=== PATIENT | female | born 1945 | race Caucasian/White ===

== ENCOUNTER → 2017-08-06 | Outpatient (REF) | payer MEDICARE, OTHER | LOC: M SMT 17:05 | PROVIDERS: ATTEND Nurse Practitioner Family | DX: R10.9 Unspecified abdominal pain (principal); Z87.442 Personal history of urinary calculi | CPT/HCPCS: 81001; 87086; G0463 ==

== ENCOUNTER → 2017-08-08 | Outpatient (CLI) | payer MEDICARE, OTHER ==
[2017-08-08 18:16] LABS: MEAN CORPUSCULAR HEMOGLOBIN 31.2 pg (27.0-33.0); MEAN CORPUSCULAR HGB CONC 33.3 g/dl (32.0-36.5); MEAN CORPUSCULAR VOLUME 93.8 fl (80.0-96.0); PLATELET COUNT, AUTOMATED 210 10^3/uL (150-450); RED CELL DISTRIBUTION WIDTH 12.8 % (11.5-14.5); WHITE BLOOD COUNT 6.1 10^3/uL (4.0-10.0)
[2017-08-08 18:23] LABS: ANION GAP 6 MEQ/L (8-16); BLOOD UREA NITROGEN 21 MG/DL (7-18); CALCIUM LEVEL 10.1 MG/DL (8.8-10.2); CARBON DIOXIDE LEVEL 29 MEQ/L (21-32); CHLORIDE LEVEL 107 MEQ/L (98-107); CREATININE FOR GFR 0.96 MG/DL (0.55-1.02); GLOMERULAR FILTRATION RATE > 60.0 (>39); GLUCOSE, FASTING 103 MG/DL (83-110); SODIUM LEVEL 142 MEQ/L (136-145)
== END ==
LOC: M SMT 10:50
PROVIDERS: ATTEND Nurse Practitioner Family
DX: R10.31 Right lower quadrant pain (principal); Z87.442 Personal history of urinary calculi

== ENCOUNTER → 2017-08-15 | Outpatient (CLI) | payer MEDICARE, OTHER ==
--- NOTE | 2017-08-15 08:48 | REP ---
CT ABDOMEN AND PELVIS WITHOUT CONTRAST: 08/15/2017. Clinical history: Right flank pain. History of kidney stones. Comparison: 08/15/2017. Findings: CT abdomen: Renal stone protocol was utilized. The lung bases show no acute finding. Heart is not enlarged. There is no pericardial thickening or effusion. No hiatal hernia. Liver, spleen, adrenal glands and pancreas are unremarkable. Gallbladder is partially contracted. There is some retained food in the stomach not abnormally dilated. Stool and gas in the abdominal portion of colon without signs of colitis or diverticulitis. There is some left colonic diverticulosis. Small bowel loops grossly unremarkable. The aorta has calcifications without aneurysm. There is no periaortic or retroperitoneal pathologic sized lymphadenopathy. The left kidney shows a 4 mm stone in the upper pole pyramid or sheri and a 3 mm stone in the interpolar region laterally. There is no hydronephrosis. No hydroureter or ureteral stone. No cysts, solid mass or perinephric fluid. The left kidney showed no stone, mass or cyst. I see no hydroureter or ureteral stone. Bone windows show lumbar and lower thoracic spine with some minor degenerative changes but no compression deformity. There is a few millimeters of anterolisthesis of L4 on 5 due to facet arthritis. Visualized ribs are grossly intact. CT pelvis: The bony hips and pelvis show some degenerative changes without destructive lesion or fractures. The distal ureters are not dilated and show no stone. Bladder is nearly empty but without stone, mass or wall thickening. There is no periureteral edema. Uterus absent and the vaginal cuff intact. No adnexal mass. No pelvic free fluid or pelvic lymphadenopathy. The distal left colon and sigmoid show a few scattered diverticula. There are anastomotic sutures at the rectosigmoid junction from prior colon resection for diverticulitis. No ventral or inguinal hernia nor pathologic inguinal adenopathy. Impression: 1. A few scattered diverticula in the colon without diverticulitis or colitis. Prior colon resection from diverticulitis seen at the rectosigmoid junction intact. 2. There are a couple of small stones in 3-4 mm range, interpolar and upper pole regions of the left kidney but no hydronephrosis on that left side. No hydroureter or ureteral stone on either side and the right kidney without stones. There is no inflammatory change about the kidney or ureter to suggest a recent stone passage. The bladder without stone or other abnormality. 3. No other significant finding. Signed by Floyd Hanna MD 08/15/2017 05:28 P
== END ==
LOC: M RAD 07:39
PROVIDERS: ATTEND Nurse Practitioner Family
DX: N20.0 Calculus of kidney (principal)

== ENCOUNTER → 2018-02-06 | Outpatient (CLI) | payer MEDICARE, OTHER | LOC: M ADAMS 13:55 | DX: J20.9 Acute bronchitis, unspecified (principal) | CPT/HCPCS: 85025 ==

== ENCOUNTER → 2018-02-06 | Outpatient (REF) | payer MEDICARE, OTHER ==
[2018-02-06 19:45] LABS: BASO # 0.1 10^3/uL (0.0-0.2); BASO % 0.5 % (0.0-1.0); EOS # 0.4 10^3/uL (0.0-0.50); EOS % 2.6 % (0.0-3.0); HEMATOCRIT 44.4 % (36.0-47.0); HEMOGLOBIN 14.7 g/dl (12.0-15.5); IMMATURE GRANULOCYTE % 0.5 % (0-3.0); LYMPH # 2.2 10^3/uL (1.5-4.5); LYMPH % 16.3 % (24.0-44.0); MEAN CORPUSCULAR HEMOGLOBIN 30.6 pg (27.0-33.0); MEAN CORPUSCULAR HGB CONC 33.1 g/dl (32.0-36.5); MEAN CORPUSCULAR VOLUME 92.5 fl (80.0-96.0); MONO # 1.2 10^3/uL (0.0-0.8); MONO % 8.7 % (0.0-5.0); NEUTROPHILS # 9.5 10^3/uL (1.8-7.7); NEUTROPHILS % 71.4 % (36.0-66.0); PLATELET COUNT, AUTOMATED 261 10^3/uL (150-450); RED CELL DISTRIBUTION WIDTH 12.5 % (11.5-14.5); WHITE BLOOD COUNT 13.3 10^3/uL (4.0-10.0)
== END ==
LOC: M LABDRWAD 19:26
DX: J20.9 Acute bronchitis, unspecified (principal)

== ENCOUNTER → 2018-04-21 | Outpatient (CLI) | payer MEDICARE, OTHER | LOC: M WHC 12:07 | DX: M85.851 Other specified disorders of bone density and structure, right thigh (principal); M85.852 Other specified disorders of bone density and structure, left thigh; M85.88 Other specified disorders of bone density and structure, other site | CPT/HCPCS: 77080 ==

== ENCOUNTER → 2018-06-01 | Outpatient (REF) | payer MEDICARE, OTHER ==
[2018-06-01 22:42] LABS: APPEARANCE, URINE HAZY (CLEAR); BACTERIA, URINE AUTO 1+ (NEGATIVE); BILIRUBIN, URINE AUTO NEGATIVE (NEGATIVE); BLOOD, URINE BLOOD 1+ (NEGATIVE); COLOR, URINE YELLOW (YELLOW); GLUCOSE, URINE (UA) AUTO NEGATIVE (NEGATIVE); KETONE, URINE AUTO NEGATIVE (NEGATIVE); LEUKOCYTE ESTERASE, URINE AUTO NEGATIVE (NEGATIVE); MUCUS, URINE SMALL (NEGATIVE); NITRITE, URINE AUTO NEGATIVE (NEGATIVE); PROTEIN, URINE AUTO NEGATIVE (NEGATIVE); RBC, URINE AUTO 14 /HPF (0-3); SPECIFIC GRAVITY URINE AUTO 1.015 (1.002-1.035); SQUAMOUS EPITHELIAL CELL UR AU 1 /HPF (0-6); UROBILINOGEN, URINE AUTO 0.2 mg/dL (0.0-2.0); WBC, URINE AUTO 1 /HPF (0-3)
== END ==
LOC: M LAB REF 22:08
DX: N39.0 Urinary tract infection, site not specified (principal)
CPT/HCPCS: 81001

== ENCOUNTER → 2018-06-11 | Outpatient (CLI) | payer MEDICARE, OTHER ==
[2018-06-11 13:50] LABS: HEMATOCRIT 43.6 % (36.0-47.0); HEMOGLOBIN 14.4 g/dl (12.0-15.5); MEAN CORPUSCULAR HEMOGLOBIN 30.1 pg (27.0-33.0); PLATELET COUNT, AUTOMATED 230 10^3/uL (150-450); RED BLOOD COUNT 4.79 10^6/uL (4.00-5.40); RED CELL DISTRIBUTION WIDTH 12.7 % (11.5-14.5); WHITE BLOOD COUNT 5.9 10^3/uL (4.0-10.0)
[2018-06-11 14:03] LABS: INR 0.97; PARTIAL THROMBOPLASTIN TIME 26.7 SECONDS (25.4-37.6)
[2018-06-11 14:18] LABS: APPEARANCE, URINE MANUAL CLEAR (CLEAR)
[2018-06-11 14:19] LABS: COLOR, URINE MANUAL YELLOW (YELLOW); SPECIFIC GRAVITY,URINE MANUAL 1.015 (1.002-1.035)
[2018-06-11 14:20] LABS: BILIRUBIN, URINE MANUAL NEGATIVE (NEGATIVE); BLOOD URINE MANUAL TRACE (NEGATIVE); GLUCOSE, URINE (UA) MANUAL TRACE(50 MG/DL) mg/dL (NEGATIVE); KETONE, URINE MANUAL NEGATIVE (NEGATIVE); LEUKOCYTE ESTERASE, URINE MAN NEGATIVE (NEGATIVE); NITRITE, URINE MANUAL NEGATIVE (NEGATIVE); PROTEIN, URINE MANUAL NEGATIVE (NEGATIVE); UROBILINOGEN, URINE MANUAL NORMAL (NORMAL)
[2018-06-11 14:21] LABS: MICROSCOPIC INDICATED? MAN YES (NO)
[2018-06-11 14:24] LABS: BACTERIA, URINE NONE SEEN; HYALINE CAST, URINE NONE SEEN /lpf (0-1); MICROSCOPIC EXAM PERFORMED; SQUAMOUS EPITHELIAL CELL URINE SMALL AMOUNT /hpf (SMALL AMT); WBC, URINE 0-1 /hpf (0-3)
[2018-06-11 14:40] LABS: ANION GAP 8 MEQ/L (8-16); BLOOD UREA NITROGEN 18 MG/DL (7-18); CALCIUM LEVEL 10.1 MG/DL (8.8-10.2); CARBON DIOXIDE LEVEL 27 MEQ/L (21-32); CHLORIDE LEVEL 107 MEQ/L (98-107); CREATININE FOR GFR 0.99 MG/DL (0.55-1.30); GLOMERULAR FILTRATION RATE 58.9 (>39); GLUCOSE, FASTING 83 MG/DL (70-100); POTASSIUM SERUM 3.8 MEQ/L (3.5-5.1); SODIUM LEVEL 142 MEQ/L (136-145)
== END ==
LOC: M LAB 13:04
DX: Z01.818 Encounter for other preprocedural examination (principal); N20.0 Calculus of kidney
CPT/HCPCS: 93005

== ENCOUNTER 2018-06-18 06:16 | Day surgery (SDC) | payer MEDICARE, OTHER ==
[2018-06-18] MEDS ORDERED: LR 1,000 ML IV (07:00)
[2018-06-18] MEDS ORDERED: PROPOFOL 200 MG/20 ML VIAL As Ordered (07:45)
[2018-06-18] MEDS ORDERED: MIDAZOLAM INJ 2 MG/2 ML VIAL (J2250) As Ordered (07:45)
[2018-06-18] MEDS ORDERED: ONDANSETRON 4MG/2ML VIAL (J2405) As Ordered (07:45)
[2018-06-18] MEDS ORDERED: LIDOCAINE 2% INJ 100 MG/5 ML SDV (FOR ANES.) As Ordered (07:45)
[2018-06-18] MEDS ORDERED: fentaNYL 100 MCG/2 ML INJECTION (J3010) As Ordered (07:45)
== END 2018-06-18 08:50 | disposition home or self-care (01) ==
LOC: M SDC 06:16
DX: N20.0 Calculus of kidney (principal)
CPT/HCPCS: 50590

== ENCOUNTER → 2018-07-09 | Outpatient (REF) | payer MEDICARE, OTHER | LOC: M SMT 13:54 | DX: N20.0 Calculus of kidney (principal) | CPT/HCPCS: 82360 ==

== ENCOUNTER → 2018-07-09 | Outpatient (CLI) | payer MEDICARE, OTHER | LOC: M SMT 09:18 | DX: N20.0 Calculus of kidney (principal) | CPT/HCPCS: 74018 ==

== ENCOUNTER → 2018-07-09 | Outpatient (REF) | payer MEDICARE, OTHER ==
[2018-07-09 14:28] LABS: APPEARANCE, URINE HAZY (CLEAR); BACTERIA, URINE AUTO 1+ (NEGATIVE); BILIRUBIN, URINE AUTO NEGATIVE (NEGATIVE); BLOOD, URINE BLOOD NEGATIVE (NEGATIVE); CALCIUM OXALATE CRYSTALS LARGE; COLOR, URINE YELLOW (YELLOW); GLUCOSE, URINE (UA) AUTO NEGATIVE (NEGATIVE); KETONE, URINE AUTO NEGATIVE (NEGATIVE); LEUKOCYTE ESTERASE, URINE AUTO NEGATIVE (NEGATIVE); MUCUS, URINE SMALL (NEGATIVE); NITRITE, URINE AUTO NEGATIVE (NEGATIVE); PROTEIN, URINE AUTO NEGATIVE (NEGATIVE); RBC, URINE AUTO 14 /HPF (0-3); SPECIFIC GRAVITY URINE AUTO 1.018 (1.002-1.035); SQUAMOUS EPITHELIAL CELL UR AU 0 /HPF (0-6); UROBILINOGEN, URINE AUTO 0.2 mg/dL (0.0-2.0); WBC, URINE AUTO 9 /HPF (0-3)
== END ==
LOC: M SMT 14:05
DX: N20.0 Calculus of kidney (principal)
CPT/HCPCS: 81001

== ENCOUNTER → 2018-07-28 | Outpatient (CLI) | payer MEDICARE, OTHER | LOC: M ADAMS 16:15 | DX: J20.9 Acute bronchitis, unspecified (principal) | CPT/HCPCS: 85025 ==

== ENCOUNTER → 2018-07-28 | Outpatient (REF) | payer MEDICARE, OTHER ==
[2018-07-28 19:47] LABS: BASO # 0.1 10^3/uL (0.0-0.2); BASO % 0.4 % (0.0-1.0); EOS # 0.1 10^3/uL (0.0-0.50); EOS % 0.2 % (0.0-3.0); HEMATOCRIT 41.9 % (36.0-47.0); HEMOGLOBIN 13.7 g/dl (12.0-15.5); IMMATURE GRANULOCYTE % 0.6 % (0-3.0); LYMPH # 2.3 10^3/uL (1.5-4.5); LYMPH % 9.3 % (24.0-44.0); MEAN CORPUSCULAR HEMOGLOBIN 30.4 pg (27.0-33.0); MEAN CORPUSCULAR HGB CONC 32.7 g/dl (32.0-36.5); MEAN CORPUSCULAR VOLUME 93.1 fl (80.0-96.0); MONO # 1.5 10^3/uL (0.0-0.8); MONO % 5.8 % (0.0-5.0); NEUTROPHILS # 20.9 10^3/uL (1.8-7.7); NEUTROPHILS % 83.7 % (36.0-66.0); PLATELET COUNT, AUTOMATED 328 10^3/uL (150-450); RED CELL DISTRIBUTION WIDTH 12.7 % (11.5-14.5)
== END ==
LOC: M LABDRWAD 19:28
DX: J20.9 Acute bronchitis, unspecified (principal)

== ENCOUNTER → 2018-08-01 | Outpatient (CLI) | payer MEDICARE, OTHER ==
[2018-08-01 17:52] LABS: BASO # 0.1 10^3/uL (0.0-0.2); BASO % 0.7 % (0.0-1.0); EOS # 0.4 10^3/uL (0.0-0.50); EOS % 3.1 % (0.0-3.0); HEMATOCRIT 38.7 % (36.0-47.0); HEMOGLOBIN 12.7 g/dl (12.0-15.5); IMMATURE GRANULOCYTE % 0.2 % (0-3.0); LYMPH # 1.8 10^3/uL (1.5-4.5); LYMPH % 14.5 % (24.0-44.0); MEAN CORPUSCULAR HGB CONC 32.8 g/dl (32.0-36.5); MEAN CORPUSCULAR VOLUME 91.5 fl (80.0-96.0); MONO # 0.9 10^3/uL (0.0-0.8); MONO % 7.2 % (0.0-5.0); NEUTROPHILS # 9.4 10^3/uL (1.8-7.7); NEUTROPHILS % 74.3 % (36.0-66.0); PLATELET COUNT, AUTOMATED 313 10^3/uL (150-450); RED BLOOD COUNT 4.23 10^6/uL (4.00-5.40); RED CELL DISTRIBUTION WIDTH 12.9 % (11.5-14.5); WHITE BLOOD COUNT 12.7 10^3/uL (4.0-10.0)
== END ==
LOC: M LABDRWAD 13:49
DX: J20.9 Acute bronchitis, unspecified (principal)
CPT/HCPCS: 85025

== ENCOUNTER → 2019-01-11 | Outpatient (CLI) | payer MEDICARE, OTHER ==
[~2019-01-11] MED LIST: ESTR3TA PO; MELO15TA28 PO; PROBCAP14 PO; VITA100066 PO; VITA500C24 PO
--- NOTE | 2019-01-11 12:33 | REP ---
Supine abdomen single AP view for renal calculi: Comparisons are the supine abdomen of 07/09/[address] of the abdomen and pelvis dated 06/04/2018. Multiple bowel loops superimpose the renal areas bilaterally. Three small densities superimposed over the left kidney, possibly representing renal calculi versus bowel lumen content artifact. No definite calcifications are identified over the right kidney. There is a surgical staple line in the pelvis, unchanged. The bowel gas pattern is normal. Skeletal structures are unremarkable. Impression: Questionable left renal calculi. The right kidney is obscured by bowel gas. Electronically Signed by Venancio Amaya MD 01/11/2019 12:25 P
== END ==
LOC: M SMT 09:53
PROVIDERS: ATTEND Nurse Practitioner Family
DX: N20.0 Calculus of kidney (principal)
CPT/HCPCS: 74018; G0463

== ENCOUNTER → 2019-02-02 | Outpatient (CLI) | payer MEDICARE, OTHER ==
[~2019-02-02] MED LIST changes: +OXYC1TAB23 PO; +PHEN15CA PO; +TAMS1CAP17 PO
--- NOTE | 2019-02-03 06:25 | REP ---
Clinical: Kidney stone. Technique: Axial noncontrast images from the lung bases to the pubic symphysis with coronal and sagittal re-formations. Comparison: 06/04/2018. Findings: Evaluation of the urinary tract system demonstrates a by mm nonobstructing right renal calculus and multiple nonobstructing left renal calculi between 2 mm and 5 mm. While there is no evidence for perinephric stranding or hydroureteronephrosis, and 8 mm calculus is identified in the right sudheer pelvis (images [id number]) which represents a new finding as compared to prior examination and may represent nonobstructing distal right ureteral stone. Liver, spleen, pancreas, gallbladder, and bilateral adrenal glands are normal for noncontrast evaluation. The enteric system is without obstruction or acute inflammatory process. Colonic and sigmoid diverticula noted without acute diverticulitis. Evidence for prior resection/anastomoses involving the rectosigmoid junction. No ascites. No adenopathy. Pelvis demonstrates normal bladder and evidence for prior hysterectomy. Musculoskeletal structures demonstrate degenerative changes without focal osseous abnormality. Lung bases are clear. Impression: Bilateral nonobstructing intrarenal calculi as detailed above with possible nonobstructing 8 mm distal right ureteral stone. Electronically Signed by Keith Alva MD 02/03/2019 06:16 A
== END ==
LOC: M RAD 08:58
PROVIDERS: ATTEND Nurse Practitioner Family
DX: N20.0 Calculus of kidney (principal)

== ENCOUNTER 2019-02-17 11:41 | Day surgery (SDC) | payer MEDICARE, OTHER ==
[~2019-02-17] VITALS: Ht 165.1 cm; Wt 79.8 kg
[~2019-02-17 11:41] MED LIST changes: -OXYC1TAB23 PO; -PHEN15CA PO; -TAMS1CAP17 PO
[2019-02-17] MEDS ORDERED: OXYC1TAB23 PO (11:57)
[2019-02-17] MEDS ORDERED: TAMS1CAP17 PO (11:57)
[2019-02-17] MEDS ORDERED: NS 1,000 ML IV SCH (12:54)
[2019-02-17] MEDS ORDERED: ONDANSETRON 4MG/2ML VIAL (J2405) IV ONE (13:00)
[2019-02-17] MEDS ORDERED: KETOROLAC 30 MG/ML VIAL (J1885) IV ONE (13:00)
[2019-02-17 13:59] LABS: BASO % 0.2 % (0.0-1.0); HEMATOCRIT 46.8 % (36.0-47.0); HEMOGLOBIN 15.9 g/dl (12.0-15.5); LYMPH # 0.7 10^3/uL (1.5-4.5); LYMPH % 6.3 % (24.0-44.0); MEAN CORPUSCULAR HEMOGLOBIN 30.8 pg (27.0-33.0); MEAN CORPUSCULAR VOLUME 90.7 fl (80.0-96.0); MONO # 0.6 10^3/uL (0.0-0.8); MONO % 4.8 % (0.0-5.0); NEUTROPHILS # 10.4 10^3/uL (1.8-7.7); NEUTROPHILS % 88.2 % (36.0-66.0); PLATELET COUNT, AUTOMATED 241 10^3/uL (150-450); RED BLOOD COUNT 5.16 10^6/uL (4.00-5.40); WHITE BLOOD COUNT 11.8 10^3/uL (4.0-10.0)
--- NOTE | 2019-02-17 14:16 | REP ---
CT of the abdomen pelvis without IV or bowel contrast for right flank pain and history of renal calculi: Comparison is 02/02/2019. There is a 9 x 6 mm calcification in the distal right ureter through 4 cm above the bladder similar to the prior study. However, there is no right hydroureter and right hydronephrosis as an interval change. There is a nonobstructive right renal calculus, unchanged. There are multiple nonobstructive left renal calculi, unchanged. There is no left hydronephrosis. There is no left ureteral calculus. There are no bladder calculi. The visualized lower lung schuster are unremarkable. The unenhanced hepatic parenchyma, gallbladder, pancreas, spleen, adrenals, abdominal aorta, bowel and mesentery are unchanged. There are numerous colonic diverticuli without CT evidence of acute diverticulitis. There is no ascites, adenopathy or mass. Pelvis: No adenopathy, ascites or mass. There are phleboliths. Impression: There is an obstructive calculus in the distal right ureter, several centimeters above the urinary bladder measuring 9 x 6 mm. There are bilateral nonobstructive renal calculi. Electronically Signed by Venancio Amaya MD 02/17/2019 02:08 P
[2019-02-17 14:24] LABS: CALCIUM LEVEL 10.4 MG/DL (8.8-10.2); CREATININE FOR GFR 1.35 MG/DL (0.55-1.30); GLOMERULAR FILTRATION RATE 41.2 (>39); POTASSIUM SERUM 3.5 MEQ/L (3.5-5.1)
[2019-02-17] MEDS ORDERED: MORPHINE 4 MG/ML 1ML VIAL/SYRINGE (J2270) IV ONE (14:30)
[2019-02-17] MEDS ORDERED: cefTRIAXone SOD 1 GM in D5W MINI-BAG PLUS 50 ML IV ONE (15:45)
[2019-02-17] MEDS ORDERED: PHEN15CA PO (16:15)
--- NOTE | 2019-02-17 18:15 | SMCUROLCON ---
Urology Consultation General Date of Consultation 02/17/19 Reason For Consultation This patient is seen for Possible Kidney Stone. History of Present Illness This is a 73 y/o F w/ a hx of kidney stones and recently found to have an 8mm distal right ureteral stone and b/l kidney stones, presenting to the ER w/ worsened right flank pain. She was seen in the office a few days ago and was scheduled for cystoscopy w/ b/l ureteroscopy w/ laser lithotripsy, but due to the increased pain, she came in to the ER today. CT A/P today was notable for moderate to severe right hydroureteronephrosis due to the obstructing right ureteral stone. She denies n/v. She denies dysuria. She denies fevers or chills. Past Medical History Medical History kidney stones diverticulosis endometriosis Surgical Hstory hysterectomy ESWL Medications Current Medications Current Medications Home Med (Med Rec Complete!) ASDIRECTED XX ; Start 02/17/19 at 16:30; Stop 02/17/19 at 16:30; Status DC Sodium Chloride 1,000 ml @ 100 mls/hr Q10H IV Last administered on 02/17/19at 13:29; Start 02/17/19 at 12:54 Allergies Allergies: Coded Allergies: No Known Allergies (Unverified , 06/18/18) Review of Systems General: Reports: Normal Appetite; Denies: Fatigue, Malaise Constitutional: Denies: Fever, Chills, Sweats, Weakness, Malaise Skin: Denies: Rash, Lesions, Breakdown, Nail Changes Pulmonary: Denies: Dyspnea, Cough Cardiovascular: Denies Chest Pain, Denies Palpitations Gastrointestinal: Denies: Nausea, Vomiting Genitourinary: Denies: Dysuria, Frequency, Hematuria Musculoskeletal: Reports: Back Pain (right flank pain) Psych: Reports: Mood Normal Physical Examination General Exam: Alert, Cooperative Chest Exam: Clear to auscultation Heart Exam: Rate Normal, Regular Rhythm Abdomen Exam: Soft Skin Exam: Nl turgor and temperature Neuro Exam: Normal Speech Psych Exam: Mental status NL, Mood NL Vital Signs/I&O Vital Signs Date Time Temp Pulse Resp B/P (MAP) Pulse Ox O2 Delivery O2 Flow Rate FiO2 02/17/19 18:04 97.1 103 18 168/80 (109) 96 Room Air Laboratory Data 24H Labs Laboratory Tests 2 02/17/19 12:54: Immature Granulocyte % (Auto) 0.5, White Blood Count 11.8H, Red Blood Count 5.16, Hemoglobin 15.9H, Hematocrit 46.8, Mean Corpuscular Volume 90.7, Mean Corpuscular Hemoglobin 30.8, Mean Corpuscular Hemoglobin Concent 34.0, Red Cell Distribution Width 12.4, Platelet Count 241, Neutrophils (%) (Auto) 88.2H, Lymphocytes (%) (Auto) 6.3L, Monocytes (%) (Auto) 4.8, Eosinophils (%) (Auto) 0.0, Basophils (%) (Auto) 0.2, Neutrophils # (Auto) 10.4H, Lymphocytes # (Auto) 0.7L, Monocytes # (Auto) 0.6, Eosinophils # (Auto) 0.0, Basophils # (Auto) 0.0, Nucleated Red Blood Cells % (auto) 0.0, Anion Gap 8, Glomerular Filtration Rate 41.2, Blood Urea Nitrogen 24H, Creatinine 1.35H, Sodium Level 136, Potassium Level 3.5, Chloride Level 102, Carbon Dioxide Level 26, Calcium Level 10.4H 02/17/19 13:45: Urine Color YELLOW, Urine Appearance CLEAR, Urine pH 7.0, Urine Specific Pearl 1.016, Urine Protein 1+H, Urine Glucose (UA) 1+H, Urine Ketones 1+H, Urine Blood 2+H, Urine Nitrite NEGATIVE, Urine Bilirubin NEGATIVE, Urine Urobilinogen 0.2, Urine Leukocyte Esterase NEGATIVE, Urine WBC (Auto) 5H, Urine RBC (Auto) 118H, Urine Hyaline Casts (Auto) 0, Urine Bacteria (Auto) NEGATIVE, Urine Squamous Epithelial Cells 0, Urine Sperm (Auto) CBC/BMP Laboratory Tests 02/17/19 12:54 Red Blood Count 5.16, Mean Corpuscular Volume 90.7, Mean Corpuscular Hemoglobin 30.8, Mean Corpuscular Hemoglobin Concent 34.0, Red Cell Distribution Width 12. 4, Neutrophils (%) (Auto) 88.2 H, Lymphocytes (%) (Auto) 6.3 L, Monocytes (%) (Auto) 4.8, Eosinophils (%) (Auto) 0.0, Basophils (%) (Auto) 0.2, Neutrophils # (Auto) 10.4 H, Lymphocytes # (Auto) 0.7 L, Monocytes # (Auto) 0.6, Eosinophils # (Auto) 0.0, Basophils # (Auto) 0.0, Calcium Level 10.4 H Assessment This is a 73 y/o F w/ b/l kidney stones and an obstructing 8mm distal right ureteral stone. I discussed management of her pain by taking her for cystoscopy and right ureteral stent placement. After a discussion of the risks and benefits, informed consent was signed. Plan - informed consent signed for cystoscopy, right ureteral stent placement - 1g umair given - NATHANAEL HEWITT MD February 17, 2019 18:15
[2019-02-17] MEDS ORDERED: CONRAY-60 60% 50ML VIAL (Q9961) As Ordered ONE (19:46)
[2019-02-17] MEDS ORDERED: LIDOCAINE 2% 5ML JELLY UROJET As Ordered ONE (19:50)
[2019-02-17 20:53] VITALS: BP 165/72
--- NOTE | 2019-02-18 08:04 | REP ---
Retrograde pyelogram: Three views. History: Ureteral stent placement. 46 seconds of fluoroscopy time is reported. Findings: A series of three last image hold fluoroscopically obtained spot radiographs of the abdomen document right ureteral cannulation, contrast injection, and double pigtail tail ureteral stent placement. Electronically Signed by Rideg Lopez MD 02/18/2019 08:06 A
--- NOTE | 2019-02-18 08:08 | RO ---
DATE OF PROCEDURE: 02/17/2019 PREPROCEDURE DIAGNOSIS: Obstructing right ureteral stone. POSTPROCEDURE DIAGNOSIS: Obstructing right ureteral stone. PROCEDURE: Cystoscopy, right ureteroscopy, right retrograde pyelogram with intraoperative interpretation of images, right ureteral stent placement. SURGEON: Dr. Thomas Simon. IT DATA ARCHITECT: None. ANESTHESIA: MAC. OPERATING INDICATIONS: This is a 73-year-old female who was recently found to have an obstructing distal right ureteral stone as well as bilateral kidney stones. Due to intractable pain she came back to the emergency room and it was recommended that she be brought to the operating room today for stent placement. DESCRIPTION OF PROCEDURE: Patient was brought to the operating room and MAC anesthesia was administered. Prophylactic antibiotics were infused. She was placed in the dorsal lithotomy position, prepped and draped in the usual sterile fashion. A rigid cystoscope was inserted into the urethral meatus and advanced to the bladder. A guidewire was advanced up the right collecting system. I then advanced an open ended ureteral catheter up the right collecting system and then removed the wire. Urine was aspirated from the right kidney. Of note it appeared to be a little cloudy. Approximately 15 mL was aspirated and sent for culture. At this point a retrograde pyelogram was performed for moderate to severe right hydroureteronephrosis and a very torturous proximal ureter. At this point the wire was advanced back up the right collecting system. Because of the tortuosity of the ureter I can not actually advance the wire into the right renal pelvis. At this point the open ended ureteral catheter was removed and I advanced a flexible ureteroscope up over the wire. Using the ureteroscope I was able to navigate all the way past the stone and into the right renal pelvis. At this point the wire was advanced into the renal pelvis and then the ureteroscope was removed. I utilized the wire to advance the 7-Serbian x 22-32 cm JJ ureteral stent up to the right collecting system. The wire was removed and there are adequate curls of the stent in the right renal pelvis and in the bladder. The bladder was emptied of all fluids and this marked the conclusion of the procedure. The patient was then taken out of dorsal lithotomy position, awakened from anesthesia and transported to the recovery room in stable condition. ESTIMATED BLOOD LOSS: 5 mL. COMPLICATIONS: None. SPECIMENS: Urine from the right renal pelvis for culture. PLAN: The patient will followup for elective bilateral ureteroscopy laser lithotripsy as previously planned.
== END 2019-02-17 20:55 | disposition home or self-care (01) ==
LOC: M ED 11:41 → M SDC 18:29
PROVIDERS: ATTEND Urology
DX: N20.1 Calculus of ureter (principal); N20.0 Calculus of kidney; K58.8 Other irritable bowel syndrome
CPT/HCPCS: 52332; 74176; 74420; 80048; 81001; 85025; 87086; 96365; 96366; 96375; 99284; C1769; C2617; J0696; J1885; J2270; J2405; Q9961

== ENCOUNTER → 2019-03-05 | Outpatient (CLI) | payer MEDICARE, OTHER ==
[~2019-03-05] MED LIST changes: +OXYC1TAB23 PO; +PHEN15CA PO; +TAMS1CAP17 PO
--- NOTE | 2019-03-05 16:35 | ECGEPIP ---
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
== END ==
LOC: M EKG 11:26
PROVIDERS: ATTEND Nurse Practitioner Family
DX: Z01.818 Encounter for other preprocedural examination (principal); N20.0 Calculus of kidney

== ENCOUNTER → 2019-03-05 | Outpatient (CLI) | payer MEDICARE, OTHER ==
--- NOTE | 2019-03-05 11:34 | REP ---
Chest two views HISTORY: Preop Comparison: 07/28/2018 Linear densities are present in the right middle lobe consistent with scarring. The left lung is clear. The heart is normal in size. The pulmonary vasculature is normal in appearance. The bony structure is intact. IMPRESSION: No acute disease. Electronically Signed by Akash Johnson MD 03/05/2019 11:25 A
[2019-03-05 14:12] LABS: HEMATOCRIT 39.6 % (36.0-47.0); HEMOGLOBIN 12.6 g/dl (12.0-15.5); MEAN CORPUSCULAR HGB CONC 31.8 g/dl (32.0-36.5); MEAN CORPUSCULAR VOLUME 94.3 fl (80.0-96.0); PLATELET COUNT, AUTOMATED 272 10^3/uL (150-450); WHITE BLOOD COUNT 7.3 10^3/uL (4.0-10.0)
[2019-03-05 14:15] LABS: CALCIUM LEVEL 9.5 MG/DL (8.8-10.2); CREATININE FOR GFR 1.15 MG/DL (0.55-1.30); GLOMERULAR FILTRATION RATE 49.4 (>39); POTASSIUM SERUM 4.1 MEQ/L (3.5-5.1)
[2019-03-05 14:21] LABS: INR 0.96; PROTHROMBIN TIME 12.9 SECONDS (12.1-14.4)
[2019-03-05 14:22] LABS: PARTIAL THROMBOPLASTIN TIME 28.1 SECONDS (25.4-37.6)
[2019-03-05 15:21] LABS: APPEARANCE, URINE MANUAL TURBID (CLEAR); COLOR, URINE MANUAL AMBER (YELLOW)
[2019-03-05 15:22] LABS: SPECIFIC GRAVITY,URINE MANUAL 1.018 (1.002-1.035)
[2019-03-05 15:23] LABS: PH,URINE MAN 5.5 UNITS (5.0 - 7.0); PROTEIN, URINE MANUAL 2+ mg/dL (NEGATIVE)
[2019-03-05 15:24] LABS: BILIRUBIN, URINE MANUAL 1+ (NEGATIVE); BLOOD URINE MANUAL POSITIVE (NEGATIVE); GLUCOSE, URINE (UA) MANUAL NEGATIVE (NEGATIVE); KETONE, URINE MANUAL NEGATIVE (NEGATIVE); LEUKOCYTE ESTERASE, URINE MAN POSITIVE (NEGATIVE); NITRITE, URINE MANUAL POSITIVE (NEGATIVE); UROBILINOGEN, URINE MANUAL NORMAL (NORMAL)
[2019-03-05 15:27] LABS: RBC, URINE TNTC /hpf (0-3)
[2019-03-05 15:28] LABS: BACTERIA, URINE SMALL AMOUNT; SQUAMOUS EPITHELIAL CELL URINE SMALL AMOUNT /hpf (SMALL AMT)
[2019-03-05 16:13] LABS: AMORPHOUS SEDIMENT, URINE SMALL AMOUNT (NEGATIVE); HYALINE CAST, URINE NONE SEEN /lpf (0-1); WBC, URINE 0-1 /hpf (0-3)
== END ==
LOC: M SMT 10:15
PROVIDERS: ATTEND Nurse Practitioner Family
DX: Z01.818 Encounter for other preprocedural examination (principal); N20.0 Calculus of kidney; Z79.01 Long term (current) use of anticoagulants

== ENCOUNTER → 2019-03-08 | Outpatient (REF) | payer MEDICARE, OTHER ==
[2019-03-08 20:36] LABS: AMORPHOUS SEDIMENT SMALL (NEGATIVE); APPEARANCE, URINE CLOUDY (CLEAR); BACTERIA, URINE AUTO NEGATIVE (NEGATIVE); BILIRUBIN, URINE AUTO NEGATIVE (NEGATIVE); BLOOD, URINE BLOOD 3+ (NEGATIVE); COLOR, URINE RED (YELLOW); GLUCOSE, URINE (UA) AUTO NEGATIVE (NEGATIVE); KETONE, URINE AUTO TRACE mg/dL (NEGATIVE); LEUKOCYTE ESTERASE, URINE AUTO 3+ (NEGATIVE); NITRITE, URINE AUTO NEGATIVE (NEGATIVE); PROTEIN, URINE AUTO 3+ mg/dL (NEGATIVE); RBC, URINE AUTO TNTC /HPF (0-3); SPECIFIC GRAVITY URINE AUTO 1.016 (1.002-1.035); SQUAMOUS EPITHELIAL CELL UR AU 2 /HPF (0-6); UROBILINOGEN, URINE AUTO 0.2 mg/dL (0.0-2.0); WBC, URINE AUTO TNTC /HPF (0-3)
== END ==
LOC: M SMT 19:25
PROVIDERS: ATTEND Nurse Practitioner Family
DX: Z01.818 Encounter for other preprocedural examination (principal); N20.0 Calculus of kidney

== ENCOUNTER 2019-03-19 06:05 | Day surgery (SDC) | payer MEDICARE, OTHER ==
[~2019-03-19] VITALS: Ht 165.1 cm; Wt 79.7 kg
[2019-03-19] MEDS ORDERED: LR 1,000 ML IV ONE (07:00)
[2019-03-19] MEDS ORDERED: CONRAY-60 60% 50ML VIAL (Q9961) As Ordered ONE (07:08)
[2019-03-19] MEDS ORDERED: PROPOFOL 200 MG/20 ML VIAL As Ordered ONE (07:20)
[2019-03-19] MEDS ORDERED: ONDANSETRON 4MG/2ML VIAL (J2405) As Ordered ONE (07:20)
[2019-03-19] MEDS ORDERED: MIDAZOLAM INJ 2 MG/2 ML VIAL (J2250) As Ordered ONE (07:20)
[2019-03-19] MEDS ORDERED: dexameTHASONE 4 MG/ML 1ML VIAL (J1100) As Ordered ONE (07:20)
[2019-03-19] MEDS ORDERED: LIDOCAINE 2% INJ 100 MG/5 ML SDV (FOR ANES.) As Ordered ONE (07:20)
[2019-03-19] MEDS ORDERED: fentaNYL 100 MCG/2 ML INJECTION (J3010) As Ordered ONE ×2 (07:21→09:22)
[2019-03-19] MEDS ORDERED: PHENYLephrine HCL 500 MCG/5 ML (100MCG/ML) SYRINGE (J2370) As Ordered ONE (08:04)
[2019-03-19] MEDS ORDERED: ePHEDrine SULFATE 25 MG/5 ML(5MG/ML) SYRINGE As Ordered ONE (08:37)
[2019-03-19] MEDS: fentaNYL 100 MCG/2 ML INJECTION (J3010) IV PRN ×4 (09:23→09:39)
[2019-03-19] MEDS ORDERED: LR 1,000 ML IV SCH ×2 (09:30→09:45)
[2019-03-19] MEDS ORDERED: PERCOCET 5MG/325MG TAB PO PRN ×2 (09:30→09:45)
[2019-03-19] MEDS ORDERED: oxyBUTYnin 5 MG TAB PO PRN (09:30)
[2019-03-19] MEDS ORDERED: ONDANSETRON 4MG/2ML VIAL (J2405) IV PRN ×2 (09:30→09:45)
--- NOTE | 2019-03-19 09:40 | REP ---
RETROGRADE PYELOGRAM: Four views. HISTORY: Nephrolithiasis. 33 seconds of fluoroscopy time is reported. FINDINGS: A sequence of four last image hold fluoroscopically obtained spot radiographs of the abdomen document bilateral ureteral cannulation, contrast injection, and a double pigtail ureteral stent placement. Electronically Signed by Ridge Lopez MD 03/19/2019 03:04 P
[2019-03-19] MEDS: PERCOCET 5MG/325MG TAB PO PRN ×2 (09:44→10:27)
[2019-03-19] MEDS ORDERED: fentaNYL 100 MCG/2 ML INJECTION (J3010) IV PRN (09:45)
[2019-03-19 10:01] VITALS: BP 148/69
--- NOTE | 2019-03-19 10:10 | RO ---
DATE OF PROCEDURE: 03/19/2019 PREPROCEDURE DIAGNOSIS: Kidney stones. POSTPROCEDURE DIAGNOSIS: Kidney stones. PROCEDURE: Cystoscopy, bilateral ureteroscopy with laser lithotripsy and basket extraction of stones, bilateral retrograde pyelograms with intraoperative interpretation of images, right ureteral stent exchange, left ureteral stent placement. SURGEON: Thomas Simon MD BAR ROLLER: None. ANESTHESIA: General. OPERATIVE INDICATIONS: This is a 73-year-old female who underwent a cystoscopy and right ureteral stent placement a few weeks ago for an obstructing distal right ureteral stone. She also had bilateral kidney stones. She was brought to the operating room today for treatment. DESCRIPTION OF PROCEDURE: Patient was brought to the operating room and general anesthesia was induced. Prophylactic antibiotics were infused. She was then placed in the dorsal lithotomy position, and prepped and draped in the usual sterile fashion. A rigid cystoscope was inserted through the urethral meatus and advanced into the bladder. The previously placed stent was seen. A Guidewire was advanced up the right collecting system along side the stent. That stent was then removed, and of note, it was heavily calcified and encrusted. After the stent was removed, I went up the right ureter with a short semirigid ureteroscope and within the distal ureter an approximate 8-9 mm stone was seen. The stone was fragmented into smaller pieces using 272 micron laser fiber and then all the fragments were removed using a basket. Once all the stones were removed, a ureteral access sheath was advanced up the right collecting system. I then went into the kidney and approximately two to three stones were seen in the right kidney, each measuring no bigger than 4-5 mm in size. All of these stones were removed using a basket. Once satisfied all of the kidney stones had been cleared a retrograde pyelogram was performed and was notable for a mild to moderate right hydronephrosis with no extravasation. I then withdrew the ureteroscope along with the access sheath and any stone debris or clots in the ureter were then removed using the basket. Once I was done, I did decide to leave a stent on the right side considering the difficulty removing her old stent because it was calcified. I therefore advanced a #7 Belarusian by 22-32 cm JJ ureteral stent up to the right collecting system. The wire was removed and there were adequate curls of the stent in the right renal pelvis and in the bladder. At this point, I advanced a Guidewire up the left collecting system. An access sheath was then advanced over the wire. I went up the access sheath with a flexible ureteroscope and examined the left kidney thoroughly. Only two stones were seen. The largest was about 5 mm in size. Both stones were removed using a basket. I then shot a retrograde pyelogram and it was notable for mild left hydronephrosis, no extravasation. I then withdrew the ureteroscope along with the access sheath and no stones were seen within the ureter. I then advanced a #7 Belarusian by 22-32 cm JJ ureteral stent up to the left collecting system over the wire. The wire was then removed and there were adequate curls of the stent in the left renal pelvis and in the bladder. The bladder was emptied of all fluids and this marked conclusion of the procedure. The patient was then taken out of dorsal lithotomy position, awakened from anesthesia and transferred to the recovery room in stable condition. ESTIMATED BLOOD LOSS: 5 mL. COMPLICATIONS: None. SPECIMENS: Kidney stone fragments. PLAN: The patient will follow-up in the clinic in approximately one week for stent removal. KEARA
[2019-03-25 00:07] LABS: CA Hydro Phos 20 % (.); Ca Ox Monohydrate 30 % (.)
== END 2019-03-19 11:00 | disposition home or self-care (01) ==
LOC: M SDC 06:05
PROVIDERS: ATTEND Urology
DX: N20.0 Calculus of kidney (principal); K57.32 Diverticulitis of large intestine without perforation or abscess without bleeding; R06.83 Snoring; R31.9 Hematuria, unspecified; E55.9 Vitamin D deficiency, unspecified; E66.09 Other obesity due to excess calories; Z68.30 Body mass index [BMI] 30.0-30.9, adult; Z79.899 Other long term (current) drug therapy; Z78.0 Asymptomatic menopausal state
CPT/HCPCS: 52356; 74420; 82360; 88300; C1769; C1894; C2617; J0690; J1100; J2250; J2370; J2405; J3010; Q9961

== ENCOUNTER → 2019-03-26 | Outpatient (REF) | payer MEDICARE, OTHER | LOC: M SMT 17:33 | PROVIDERS: ATTEND Urology | DX: N20.0 Calculus of kidney (principal) ==

== ENCOUNTER → 2019-05-28 | Outpatient (REF) | payer MEDICARE, OTHER ==
[2019-05-28 18:39] LABS: APPEARANCE, URINE HAZY (CLEAR); BACTERIA, URINE AUTO 1+ (NEGATIVE); BILIRUBIN, URINE AUTO NEGATIVE (NEGATIVE); BLOOD, URINE BLOOD NEGATIVE (NEGATIVE); CALCIUM OXALATE CRYSTALS LARGE; COLOR, URINE YELLOW (YELLOW); GLUCOSE, URINE (UA) AUTO NEGATIVE (NEGATIVE); KETONE, URINE AUTO TRACE mg/dL (NEGATIVE); LEUKOCYTE ESTERASE, URINE AUTO NEGATIVE (NEGATIVE); MUCUS, URINE SMALL (NEGATIVE); NITRITE, URINE AUTO NEGATIVE (NEGATIVE); PROTEIN, URINE AUTO NEGATIVE (NEGATIVE); RBC, URINE AUTO 19 /HPF (0-3); SPECIFIC GRAVITY URINE AUTO 1.017 (1.002-1.035); SQUAMOUS EPITHELIAL CELL UR AU 2 /HPF (0-6); UROBILINOGEN, URINE AUTO 0.2 mg/dL (0.0-2.0); WBC, URINE AUTO 15 /HPF (0-3)
== END ==
LOC: M SMT 16:50
PROVIDERS: ATTEND Nurse Practitioner Family
DX: R10.9 Unspecified abdominal pain (principal)
CPT/HCPCS: 81001; 87086; G0463

== ENCOUNTER → 2019-06-03 | Outpatient (CLI) | payer MEDICARE, OTHER ==
--- NOTE | 2019-06-03 18:04 | REP ---
CT of the abdomen and pelvis without IV or bowel contrast: Comparisons 02/17/2019. There is a 6 ml calculus in the distal left ureter approximately 4 cm above the bladder. There is left hydroureter and hydronephrosis. There is a nonobstructive calculus in the left kidney. There are no right renal or ureteral calculi. The previous right ureteral calculus is no longer present. There are no bladder calculi. The visualized lung schuster are unremarkable. The unenhanced hepatic parenchyma, gallbladder, pancreas, spleen, adrenals, abdominal aorta, bowel and mesentery are unremarkable. There are colonic diverticula. There is no CT evidence of diverticulitis. There is a surgical staple ring in the rectosigmoid colon. This is unchanged. Impression: There is a 6 ml calculus in the distal left ureter approximately 4 cm above the bladder. There is left hydroureter and hydronephrosis. There is a nonobstructive calculus in the left kidney. There are no right renal or ureteral calculi. The previous right ureteral calculus is no longer present. Electronically Signed by Venancio Amaya MD 06/03/2019 05:56 P
== END ==
LOC: M RAD 17:15
PROVIDERS: ATTEND Nurse Practitioner Family
DX: R10.9 Unspecified abdominal pain (principal)

== ENCOUNTER → 2019-06-21 | Outpatient (CLI) | payer MEDICARE, OTHER ==
--- NOTE | 2019-06-21 11:33 | REP ---
KUB ABDOMEN AND PELVIS: KUB film of the abdomen and pelvis is performed and compared to prior CT of 06/03/2019 and KUB 01/11/2019. There appear to be two subcentimeter calculi in the lower pole of the left kidney. There are adjacent surgical sutures overlying the medial aspect of the left kidney. Surgical sutures are also seen in the pelvis. No definite radiopaque calculus is seen along the course of the left ureter. Bowel gas pattern is normal. There are degenerative changes of the spine. Electronically Signed by Venancio Varghese MD 06/21/2019 04:12 P
[2019-06-21 14:14] LABS: APPEARANCE, URINE CLEAR (CLEAR); BACTERIA, URINE AUTO 1+ (NEGATIVE); BILIRUBIN, URINE AUTO NEGATIVE (NEGATIVE); BLOOD, URINE BLOOD 2+ (NEGATIVE); COLOR, URINE YELLOW (YELLOW); GLUCOSE, URINE (UA) AUTO NEGATIVE (NEGATIVE); KETONE, URINE AUTO NEGATIVE (NEGATIVE); LEUKOCYTE ESTERASE, URINE AUTO NEGATIVE (NEGATIVE); MUCUS, URINE SMALL (NEGATIVE); NITRITE, URINE AUTO NEGATIVE (NEGATIVE); PROTEIN, URINE AUTO NEGATIVE (NEGATIVE); RBC, URINE AUTO 8 /HPF (0-3); SPECIFIC GRAVITY URINE AUTO 1.013 (1.002-1.035); SQUAMOUS EPITHELIAL CELL UR AU 4 /HPF (0-6); UROBILINOGEN, URINE AUTO 0.2 mg/dL (0.0-2.0); WBC, URINE AUTO 4 /HPF (0-3)
== END ==
LOC: M SMT 10:03
PROVIDERS: ATTEND Nurse Practitioner Family
DX: N20.0 Calculus of kidney (principal)
CPT/HCPCS: 74018; 81001; 87086; G0463

== ENCOUNTER → 2019-06-28 | Outpatient (CLI) | payer MEDICARE, OTHER ==
--- NOTE | 2019-06-28 14:34 | REP ---
Renal ultrasound: The the right kidney measures 10.3 x 4.35 x 4.3 cm. The left kidney measures 929 x 4.73 x 4.89 cm. The kidneys are normal size. Renal cortical echogenicity is normal bilaterally. There is no hydronephrosis on the left. There are no renal calculi. There are no solid or cystic renal masses. Impression: Essentially negative renal ultrasound. No renal calculi are identified. There is no hydronephrosis. Electronically Signed by Venancio Amaya MD 06/28/2019 02:26 P
--- NOTE | 2019-06-28 14:38 | REP ---
Bladder ultrasound: With color Doppler assessment. No ureteral jets are identified. This may be from dehydration. There was no hydronephrosis on the renal ultrasound. The pre void bladder volume is 119 cc. The postvoid bladder volume is zero. No bladder wall polyps or masses are identified. Electronically Signed by Venancio Amaya MD 06/28/2019 02:30 P
== END ==
LOC: M RAD 13:25
PROVIDERS: ATTEND Nurse Practitioner Family
DX: N20.0 Calculus of kidney (principal)

== ENCOUNTER → 2019-07-23 | Outpatient (CLI) | payer MEDICARE, OTHER ==
[2019-07-23 13:23] LABS: APPEARANCE, URINE HAZY (CLEAR); BACTERIA, URINE AUTO NEGATIVE (NEGATIVE); BILIRUBIN, URINE AUTO NEGATIVE (NEGATIVE); BLOOD, URINE BLOOD 1+ (NEGATIVE); COLOR, URINE YELLOW (YELLOW); GLUCOSE, URINE (UA) AUTO NEGATIVE (NEGATIVE); KETONE, URINE AUTO TRACE mg/dL (NEGATIVE); LEUKOCYTE ESTERASE, URINE AUTO NEGATIVE (NEGATIVE); MUCUS, URINE SMALL (NEGATIVE); NITRITE, URINE AUTO NEGATIVE (NEGATIVE); PROTEIN, URINE AUTO NEGATIVE (NEGATIVE); RBC, URINE AUTO 9 /HPF (0-3); SPECIFIC GRAVITY URINE AUTO 1.016 (1.002-1.035); SQUAMOUS EPITHELIAL CELL UR AU 2 /HPF (0-6); UROBILINOGEN, URINE AUTO 0.2 mg/dL (0.0-2.0); WBC, URINE AUTO 4 /HPF (0-3)
== END ==
LOC: M SMT 11:06
PROVIDERS: ATTEND Nurse Practitioner Family
DX: R31.29 Other microscopic hematuria (principal)

== ENCOUNTER → 2019-08-03 | Outpatient (CLI) | payer MEDICARE, OTHER ==
[2019-08-03 14:04] LABS: CALCIUM LEVEL 10.1 MG/DL (8.8-10.2); CREATININE FOR GFR 1.06 MG/DL (0.55-1.30); GLOMERULAR FILTRATION RATE 54.2 (>39); POTASSIUM SERUM 4.2 MEQ/L (3.5-5.1)
== END ==
LOC: M SMT 10:21
PROVIDERS: ATTEND Nurse Practitioner Family
DX: R31.29 Other microscopic hematuria (principal)

== ENCOUNTER → 2019-08-05 | Outpatient (CLI) | payer MEDICARE, OTHER ==
[~2019-08-05] MED LIST changes: +ISOVUE-370 76% 100ML VIAL (Q9967) As Ordered ONE
--- NOTE | 2019-08-05 12:11 | REP ---
Clinical: Microscopic hematuria. Technique: Axial precontrast, contrast enhanced, and delayed images of the abdomen and pelvis using 100 ml Isovue 370 intravenous contrast material with coronal and sagittal re-formations as well as 3-D volume rendered urogram. Findings: Bilateral nonobstructing intrarenal calculi measuring up to 4 mm noted. No perinephric stranding, hydroureteronephrosis or obstructing ureteral calculi. Bilateral kidneys/ureters and bladder are otherwise normal in appearance. Liver, spleen, pancreas, gallbladder, and bilateral adrenal glands are normal. The enteric system is without obstruction or acute inflammatory process. Colonic diverticulosis noted without acute diverticulitis. Evidence for prior partial resection at the rectosigmoid level noted. Pelvis demonstrates normal bladder and evidence of prior hysterectomy. No ascites. No free air. No adenopathy. Atherosclerotic changes noted without aortic aneurysm or dissection. Musculoskeletal structures demonstrate degenerative changes without focal abnormality. Lung bases demonstrate minimal chronic-appearing changes. Impression: 1. Bilateral nephrolithiasis with renal stones up to 4 mm. 2. Colonic diverticula without acute diverticulitis. Electronically Signed by Keith Alva MD 08/05/2019 12:02 P
== END ==
LOC: M RAD 11:01
PROVIDERS: ATTEND Nurse Practitioner Family
DX: R31.29 Other microscopic hematuria (principal)
CPT/HCPCS: 74178; Q9967

== ENCOUNTER → 2019-08-10 | Outpatient (CLI) | payer MEDICARE, OTHER ==
[~2019-08-10] MED LIST changes: -ISOVUE-370 76% 100ML VIAL (Q9967) As Ordered ONE
--- NOTE | 2019-08-10 19:03 | REP ---
Lumbar spine five views: There are no comparisons. Vertebral body heights are normal. There is degenerative disc disease at L4-5. There is grade 1 anterolisthesis of L4, likely degenerative. No spondylolysis is identified. There is facet osteoarthritis at the lower lumbar levels. The pedicles are unremarkable. There is mild osteoarthritis of the sacroiliac joints. Impression: There are no vertebral body compression deformities. Grade 1 degenerative anterolisthesis of L4. Facet osteoarthritis. Sacroiliac osteoarthritis. Electronically Signed by Venancio Amaya MD 08/10/2019 06:53 P
--- NOTE | 2019-08-10 19:03 | REP ---
Right hip two views: There is mild osteoarthritis. There is no femoral head deformity. Mineralization is normal. There are no calcifications. No fracture or dislocation. Impression: Mild osteoarthritis. If symptoms persist or worsen, consider MRI. Electronically Signed by Venancio Amaya MD 08/10/2019 06:55 P
== END ==
LOC: M WUC 16:51
PROVIDERS: ATTEND Internal Medicine
DX: M16.11 Unilateral primary osteoarthritis, right hip (principal); M51.36 Other intervertebral disc degeneration, lumbar region

== ENCOUNTER → 2019-08-25 | Outpatient (REF) | payer MEDICARE, OTHER ==
[2019-08-25 17:12] LABS: C REACTIVE PROTEIN QUANTITATIV < 0.30 MG/DL (0.00-0.30); RHEUMATOID FACTOR QUANT < 10.0 IU/ML (<15.0)
== END ==
LOC: M LAB REF 16:22
PROVIDERS: ATTEND Internal Medicine
DX: G89.29 Other chronic pain (principal)

== ENCOUNTER → 2019-10-22 | Outpatient (CLI) | payer MEDICARE, OTHER ==
--- NOTE | 2019-11-03 11:47 | REPMRS ---
Patient History The patient states she had a clinical breast exam in October 2019.No known family history of cancer. Taking estrogen for 7 years. 3D TOMOSYNTHESIS WAS PERFORMED. The [facility] lifetime risk for breast cancer is 4.4%. Digital Woman Screen Mammo: October 22, 2019 - Exam #: [id number] Bilateral CC and MLO view(s) were taken. Technologist: Agustina Olvera, Technologist Prior study comparison: 2016, bilateral digital woman screen mammo, performed at [facility]. February 28, 2015, left breast digital mammo diagnostic unilateral, performed at [facility]. January 30, 2015, digital woman screen mammo performed at [facility] and [facility]. FINDINGS: There are scattered fibroglandular densities. There has been no change in the appearance of the mammogram from the prior studies. There is a mild amount of residual fibroglandular tissue which is fairly symmetric. There is no interval development of dominant mass, architectural distortion, or clustered microcalcification suggestive of malignancy. Assessment: BI-RADS/ACR category 1 mammogram. Negative Mammogram. Recommendation Routine screening mammogram in 1 year (for women over age 40). This mammogram was interpreted with the aid of an FDA-approved computer-aided dectection system. Electronically Signed By: Octavio Lopez MD 11/03/19 [id number]
== END ==
LOC: M WHC 08:21
PROVIDERS: ATTEND Nurse Practitioner Family
DX: Z12.31 Encounter for screening mammogram for malignant neoplasm of breast (principal); Z92.23 Personal history of estrogen therapy
CPT/HCPCS: 77063; 77067; G0463

== ENCOUNTER 2020-03-20 16:13 | Emergency (ER) | payer MEDICARE, OTHER ==
[~2020-03-20] VITALS: Ht 165.1 cm; Wt 83.8 kg
[2020-03-20] MEDS ORDERED: GABA-843 (16:22)
[2020-03-20] MEDS ORDERED: OXYC5CAP56 (16:22)
--- NOTE | 2020-03-20 17:03 | REP ---
Duplex extremity venous ultrasound: Left lower extremity. History: Left lower leg pain. Rule out DVT. Findings: The deep veins are anechoic and fully compressible from the groin to the popliteal fossa in the left lower extremity. Color flow imaging is homogeneous. Spectral Doppler interrogation demonstrates intact respiratory variation in flow and normal manual augmentation of flow. There is no evidence of deep vein thrombosis. Impression: Negative left lower extremity duplex venous ultrasound. No evidence of deep vein thrombosis. Electronically Signed by Ridge Lopez MD 03/20/2020 04:53 P
[2020-03-20 17:50] VITALS: BP 140/74
== END 2020-03-20 17:52 | disposition home or self-care (01) ==
LOC: M ED 16:13
DX: M79.662 Pain in left lower leg (principal)

== ENCOUNTER → 2020-04-19 | Outpatient (REF) | payer MEDICARE, OTHER ==
[~2020-04-19] MED LIST changes: +GABA-843; +OXYC5CAP56
== END ==
LOC: M WUC 09:14
PROVIDERS: ATTEND Nurse Practitioner Family
DX: N39.0 Urinary tract infection, site not specified (principal)

== ENCOUNTER → 2020-05-05 | Outpatient (REF) | payer MEDICARE, OTHER | LOC: M LAB REF 09:03 | PROVIDERS: ATTEND Physician Assistant | DX: N39.0 Urinary tract infection, site not specified (principal) ==

== ENCOUNTER → 2020-08-16 | Outpatient (REF) | payer MEDICARE, OTHER ==
[2020-08-16 20:23] LABS: VITAMIN B12 LEVEL > 2000 PG/ML
[2020-08-17 13:33] LABS: FOLATE 11.2 NG/ML
== END ==
LOC: M LAB REF 16:30
PROVIDERS: ATTEND Internal Medicine
DX: R20.2 Paresthesia of skin (principal)

== ENCOUNTER → 2020-08-17 | Outpatient (REF) | payer MEDICARE, OTHER | LOC: M LAB REF 16:26 | PROVIDERS: ATTEND Physician Assistant | DX: N39.0 Urinary tract infection, site not specified (principal) ==

== ENCOUNTER → 2020-09-04 | Outpatient (CLI) | payer MEDICARE, OTHER ==
[2020-09-04 16:43] LABS: CREATININE FOR GFR 1.07 MG/DL (0.55-1.30); GLOMERULAR FILTRATION RATE 53.5 (>39)
== END ==
LOC: M LAB 15:58
PROVIDERS: ATTEND Pain Medicine Interventional Pain Medicine
DX: M96.1 Postlaminectomy syndrome, not elsewhere classified (principal)

== ENCOUNTER → 2020-09-24 | Outpatient (REF) | payer MEDICARE, OTHER | LOC: M LAB REF 15:03 | PROVIDERS: ATTEND Nurse Practitioner Family | DX: N39.0 Urinary tract infection, site not specified (principal) ==

== ENCOUNTER → 2020-10-12 | Outpatient (CLI) | payer MEDICARE, OTHER ==
[~2020-10-12] MED LIST changes: +GABA-282; -GABA-843
--- NOTE | 2020-10-12 10:14 | REP ---
INDICATION: N39.0 URINARY TRACT INFECTION,N20.0 KIDNEY STONE COMPARISON: 06/28/2019 TECHNIQUE: Real time lockwood scale and color Doppler ultrasound examination of the bilateral kidneys and bladder using curved array transducer. FINDINGS: The bilateral kidneys are relatively normal in reniform shape, intrarenal vascularity and echogenicity without hydronephrosis, cystic or renal mass lesion. No perinephric fluid collection. Right kidney measures 11.0 x 4.6 x 5.7 cm (RI 0.66) and includes 13 mm echogenic focus with shadowing suggesting nonobstructing calculus. Left kidney measures 10.4 x 5.0 x 5.2 cm (RI 0.57) and includes 6 mm upper pole echogenic focus with shadowing suggesting nonobstructing calculus. The prevoid bladder measures 3.2 x 3.5 x 2.3 cm (17 cc) and the patient states feeling full. Bladder wall measures 5 mm and is nonspecific. No obvious bladder mass appreciated. Postvoid images demonstrate complete bladder emptying. Bilateral ureteral jets were not obtained during examination. IMPRESSION: 1. Kidneys with suggestions are for nephrolithiasis 2. Significantly decreased bladder volume with complete emptying. <Electronically signed by Keith Alva > 10/12/20 [id number]
== END ==
LOC: M WHC 09:25
PROVIDERS: ATTEND Nurse Practitioner Family
DX: N39.0 Urinary tract infection, site not specified (principal); N20.0 Calculus of kidney

== ENCOUNTER → 2020-10-23 | Outpatient (REF) | payer MEDICARE, OTHER ==
[2020-10-23 18:07] LABS: APPEARANCE, URINE CLOUDY (CLEAR); BACTERIA, URINE AUTO NEGATIVE (NEGATIVE); BILIRUBIN, URINE AUTO NEGATIVE (NEGATIVE); BLOOD, URINE BLOOD 3+ (NEGATIVE); COLOR, URINE YELLOW (YELLOW); GLUCOSE, URINE (UA) AUTO NEGATIVE (NEGATIVE); KETONE, URINE AUTO NEGATIVE (NEGATIVE); LEUKOCYTE ESTERASE, URINE AUTO 1+ (NEGATIVE); MUCUS, URINE SMALL (NEGATIVE); NITRITE, URINE AUTO NEGATIVE (NEGATIVE); PROTEIN, URINE AUTO 2+ mg/dL (NEGATIVE); RBC, URINE AUTO TNTC /HPF (0-3); SPECIFIC GRAVITY URINE AUTO 1.014 (1.002-1.035); SQUAMOUS EPITHELIAL CELL UR AU 6 /HPF (0-6); UROBILINOGEN, URINE AUTO 0.2 mg/dL (0.0-2.0); WBC, URINE AUTO 35 /HPF (0-3)
== END ==
LOC: M LABSMT 15:19 → M SFHCADAM 15:21
PROVIDERS: ATTEND Nurse Practitioner Family
DX: N39.0 Urinary tract infection, site not specified (principal)

== ENCOUNTER → 2020-10-27 | Outpatient (REF) | payer MEDICARE, OTHER ==
[2020-10-27 18:54] LABS: APPEARANCE, URINE HAZY (CLEAR); BACTERIA, URINE AUTO 1+ (NEGATIVE); BILIRUBIN, URINE AUTO NEGATIVE (NEGATIVE); BLOOD, URINE BLOOD 3+ (NEGATIVE); CALCIUM OXALATE CRYSTALS SMALL; COLOR, URINE YELLOW (YELLOW); GLUCOSE, URINE (UA) AUTO NEGATIVE (NEGATIVE); KETONE, URINE AUTO NEGATIVE (NEGATIVE); LEUKOCYTE ESTERASE, URINE AUTO 1+ (NEGATIVE); MUCUS, URINE SMALL (NEGATIVE); NITRITE, URINE AUTO NEGATIVE (NEGATIVE); PROTEIN, URINE AUTO 2+ mg/dL (NEGATIVE); RBC, URINE AUTO TNTC /HPF (0-3); SPECIFIC GRAVITY URINE AUTO 1.015 (1.002-1.035); SQUAMOUS EPITHELIAL CELL UR AU 2 /HPF (0-6); UROBILINOGEN, URINE AUTO 0.2 mg/dL (0.0-2.0); WBC, URINE AUTO 33 /HPF (0-3)
== END ==
LOC: M LABSMT 14:54 → M SFHCADAM 14:56
PROVIDERS: ATTEND Nurse Practitioner Family
DX: N20.0 Calculus of kidney (principal)

== ENCOUNTER → 2020-11-06 | Outpatient (CLI) | payer MEDICARE, OTHER ==
[2020-11-06 11:26] LABS: CALCIUM LEVEL 10.5 MG/DL (8.8-10.2); CREATININE FOR GFR 1.19 MG/DL (0.55-1.30); GLOMERULAR FILTRATION RATE 47.3 (>39); POTASSIUM SERUM 3.9 MEQ/L (3.5-5.1)
== END ==
LOC: M LAB 10:39
PROVIDERS: ATTEND Nurse Practitioner Family
DX: R31.29 Other microscopic hematuria (principal)

== ENCOUNTER → 2020-11-23 | Outpatient (CLI) | payer MEDICARE, OTHER ==
[~2020-11-23] MED LIST changes: +ISOVUE-370 76% 100ML VIAL As Ordered ONE
--- NOTE | 2020-11-23 10:12 | REP ---
INDICATION: MICROSCOPIC HEMATURIA. CT urography. COMPARISON: Comparison CT study August 05, 2019.. TECHNIQUE: Contrast dose: 100 ML of Isovue [address] technique: Helical scanning is acquired and 3 mm images are reformatted. In addition, multiplanar re-formation images are generated in sagittal and coronal imaging projections. Ten delayed postcontrast acquisition is carried out as well. FINDINGS: Preliminary digital aircraft part assembler radiograph demonstrates a normal bowel gas pattern, a large staghorn calculus projecting over the right kidney, and postsurgical fusion hardware at the lumbosacral junction. On axial CT images, the lung bases are essentially clear. There is no evidence of pleural effusion or upper abdominal ascites. The liver and the spleen are normal in size homogeneous in texture. No abnormality is noted in the gallbladder or the pancreas. Normal adrenal glands are observed bilaterally. Small and large intestinal bowel loops are unremarkable. The uterus is surgically absent. A normal appendix is seen in the right lower quadrant. No abdominal wall defect is observed. No retroperitoneal mass or adenopathy is seen. No pelvic adenopathy is observed. Pre contrast study demonstrates bilateral intrarenal nephrolithiasis. There are 3 separate intrarenal calculi in the left kidney measuring up to 5 mm in diameter. On the right, there is a 3 mm calculus at the lower to mid pole collecting system. In addition, there is a large staghorn calculus occupying the ureteropelvic junction and renal pelvis. This measures 1.8 by 2.2 cm in transverse dimension. Its craniocaudal span is 1.7 cm. This corresponds with the aircraft part assembler radiographic finding this is associated with mild intrarenal hydronephrosis. There is Bianca pelvic and Bianca ureteral edema and some contrast enhancement is seen in the cedillo of the proximal ureter just below the stone. The mid and distal ureter are not dilated. No bladder calculus is seen. This large calculus was not present on the CT study from August 05, 2019. Hydronephrosis is a new finding. There is no evidence of enhancing bladder mass. The bladder is largely empty at the time of scanning. Delayed postcontrast acquisition shows no filling defect in the urinary bladder. The ureters describe a normal course to the urinary bladder on delayed imaging. No other filling defect is seen in the upper tract collecting systems. IMPRESSION: New finding of a large densely calcified staghorn calculus in the right renal pelvis associated with mild right-sided hydronephrosis and urothelial thickening and contrast enhancement with Bianca ureteral edema. The right pelvic staghorn calculus measures 1.7 x 1.8 x 2.2 cm. These are new findings compared with the August 05, 2019 study. There are smaller intrarenal stones bilaterally in the kidneys as well. <Electronically signed by Octavio Lopez > 11/23/20 [id number]
== END ==
LOC: M RAD 09:13
PROVIDERS: ATTEND Nurse Practitioner Family
DX: N20.0 Calculus of kidney (principal); R31.29 Other microscopic hematuria
CPT/HCPCS: 74178; Q9967

== ENCOUNTER → 2020-12-19 | Outpatient (POV) | payer MEDICARE, OTHER ==
[~2020-12-19] MED LIST changes: -ISOVUE-370 76% 100ML VIAL As Ordered ONE
--- NOTE | 2020-12-21 15:33 | IRCOV ---
[facility] IR Consult Office Visit IR Consult Office Visit DATE: Dec 19, 2020 Patient agreed to this telephone consultation. I spent 30 minutes reviewing patient's records, imaging and talking to the patient. REASON FOR CONSULTATION/CHIEF COMPLAINT: Right kidney stone. HISTORY OF PRESENT ILLNESS: 75-year-old female with 10 year long history of suffering with bilateral kidney stones, with prior stones treated with shock wave lithotripsy, presents for right PCNL access. She states she's had stents in bilateral ureters in the past and she suffered with bladder spasms with stent placement. Her last procedures were 5 years ago. She is scheduled to undergo right-sided PCNL with urology on January 31. She suffered with recent urine infection over , with fevers and chills and was treated with antibiotics. She has been chronically on and off antibiotics over the past several months. She's had surgery in the spine and has hardware at L4-5. ALLERGIES: Please see below. HOME MEDICATIONS: Please see below. PAST MEDICAL HISTORY: Diverticulosis IBS UTIs Back pain Endometriosis Ureteral stents PAST SURGICAL HISTORY: Hysterectomy Laminectomy 2019 FAMILY HISTORY: Noncontributory SOCIAL HISTORY: Nonsmoker. Denies alcohol or drugs. REVIEW OF SYSTEMS: Otherwise negative PHYSICAL EXAMINATION: No video on patient side. LABORATORY DATA: 11/06/2020 sodium 142 potassium 3.9 BUN 27 creatinine 1.19 GFR 47.3 Imaging: I personally reviewed the CT abdomen and pelvis performed 11/23/2020. Large stone in the right renal pelvis. ASSESSMENT/PLAN: 74-year-old female with large right kidney stone. We discussed right PCNL access, nephroureteral catheter placement, risks and benefits. I advised patient to obtain Pyridium for bladder spasms. As patient has suffered bladder spasms in the past I will schedule her for her PCNL access, 2 days prior to her stone removal procedure. Thank you for this referral. Cc Dr. Simon Allergies Coded Allergies: No Known Allergies (Unverified , 03/19/19) Home Medications Scheduled Ascorbic Acid (Vitamin C), 500 MG PO DAILY, (Reported) Cholecalciferol (Vitamin D3) (Vitamin D3), 1,000 UNIT PO DAILY, (Reported) Conjugated Estrogens (Premarin), 0.3 MG PO DAILY, (Reported) Lactobacillus Acidophilus (Probiotic), 1 CAP PO DAILY, (Reported) Meloxicam (Meloxicam), 15 MG PO DAILY, (Reported) Miscellaneous Medications Gabapentin (Gabapentin), (Reported) Oxycodone HCl (Oxycodone HCl), (Reported) PHILLIP RUTHERFORD MD Dec 21, 2020 15:33
== END ==
LOC: M TMIRPOV 09:45
PROVIDERS: ATTEND Radiology Diagnostic Radiology
DX: N20.0 Calculus of kidney (principal); K58.9 Irritable bowel syndrome, unspecified; M54.9 Dorsalgia, unspecified; Z87.440 Personal history of urinary (tract) infections; Z90.710 Acquired absence of both cervix and uterus

== ENCOUNTER → 2020-12-20 | Outpatient (REF) | payer MEDICARE, OTHER ==
[2020-12-20 18:20] LABS: APPEARANCE, URINE CLOUDY (CLEAR); BACTERIA, URINE AUTO NEGATIVE (NEGATIVE); BILIRUBIN, URINE AUTO NEGATIVE (NEGATIVE); BLOOD, URINE BLOOD 3+ (NEGATIVE); CALCIUM OXALATE CRYSTALS SMALL; COLOR, URINE YELLOW (YELLOW); GLUCOSE, URINE (UA) AUTO NEGATIVE (NEGATIVE); KETONE, URINE AUTO NEGATIVE (NEGATIVE); LEUKOCYTE ESTERASE, URINE AUTO 2+ (NEGATIVE); MUCUS, URINE SMALL (NEGATIVE); NITRITE, URINE AUTO NEGATIVE (NEGATIVE); PROTEIN, URINE AUTO 3+ mg/dL (NEGATIVE); RBC, URINE AUTO TNTC /HPF (0-3); SPECIFIC GRAVITY URINE AUTO 1.018 (1.002-1.035); SQUAMOUS EPITHELIAL CELL UR AU 2 /HPF (0-6); UROBILINOGEN, URINE AUTO 0.2 mg/dL (0.0-2.0); WBC, URINE AUTO 68 /HPF (0-3)
== END ==
LOC: M LABSMT 14:50 → M SFHCADAM 14:51
PROVIDERS: ATTEND Nurse Practitioner Family
DX: N39.0 Urinary tract infection, site not specified (principal)

== ENCOUNTER → 2021-01-15 | Outpatient (REF) | payer MEDICARE, OTHER ==
[2021-01-15 18:39] LABS: INR 0.97; PROTHROMBIN TIME 13.1 SECONDS (12.5-14.3)
[2021-01-15 18:40] LABS: PARTIAL THROMBOPLASTIN TIME 24.8 SECONDS (24.2-38.5)
== END ==
LOC: M LAB REF 16:33
PROVIDERS: ATTEND Internal Medicine
DX: Z01.818 Encounter for other preprocedural examination (principal); N20.0 Calculus of kidney

== ENCOUNTER → 2021-01-15 | Outpatient (CLI) | payer MEDICARE, OTHER ==
--- NOTE | 2021-01-15 16:30 | REP ---
INDICATION: KIDNEY STONE, PREOP TESTING. COMPARISON: 03/05/2019 FINDINGS: The superior mediastinal structures are midline. The cardiac silhouette is unremarkable in size, shape, and position. The diaphragmatic surfaces of the lungs are regular, and the costophrenic angles are clear. The pulmonary schuster are clear. The imaged osseous structures are intact. IMPRESSION: There is no acute cardiopulmonary disease. <Electronically signed by Cachorro Wasserman > 01/15/21 [id number]
== END ==
LOC: M ADAMS 15:08
PROVIDERS: ATTEND Nurse Practitioner Family
DX: Z01.818 Encounter for other preprocedural examination (principal); N20.0 Calculus of kidney

== ENCOUNTER → 2021-01-25 | Outpatient (REF) | payer MEDICARE, OTHER ==
[~2021-01-25] MED LIST changes: +D31000TA2 PO; +DULO1CAP4 PO; +OXYC-1 PO; +PYRI1TAB5 PO
[2021-01-25 18:23] LABS: APPEARANCE, URINE HAZY (CLEAR); BACTERIA, URINE AUTO NEGATIVE (NEGATIVE); BILIRUBIN, URINE AUTO NEGATIVE (NEGATIVE); BLOOD, URINE BLOOD 2+ (NEGATIVE); COLOR, URINE YELLOW (YELLOW); GLUCOSE, URINE (UA) AUTO NEGATIVE (NEGATIVE); KETONE, URINE AUTO NEGATIVE (NEGATIVE); LEUKOCYTE ESTERASE, URINE AUTO TRACE (NEGATIVE); MUCUS, URINE SMALL (NEGATIVE); NITRITE, URINE AUTO NEGATIVE (NEGATIVE); PROTEIN, URINE AUTO 1+ mg/dL (NEGATIVE); RBC, URINE AUTO 177 /HPF (0-3); SPECIFIC GRAVITY URINE AUTO 1.015 (1.002-1.035); SQUAMOUS EPITHELIAL CELL UR AU 1 /HPF (0-6); UROBILINOGEN, URINE AUTO 0.2 mg/dL (0.0-2.0); WBC, URINE AUTO 10 /HPF (0-3)
== END ==
LOC: M LABSMT 14:16 → M SFHCADAM 14:17
PROVIDERS: ATTEND Nurse Practitioner Family
DX: Z01.818 Encounter for other preprocedural examination (principal); N20.0 Calculus of kidney

== ENCOUNTER → 2021-01-26 | Outpatient (CLI) | payer MEDICARE, OTHER | LOC: M LABSMTC 10:39 | PROVIDERS: ATTEND Anesthesiology | DX: Z01.812 Encounter for preprocedural laboratory examination (principal) ==

== ENCOUNTER → 2021-01-29 | Outpatient (CLI) | payer MEDICARE, OTHER ==
[~2021-01-29] MED LIST changes: +ISOVUE-300 61% 50ML VIAL As Ordered ONE; +LIDOCAINE 1% MDV 20ML VIAL As Ordered ONE; +MIDAZOLAM INJ 2MG/2ML VIAL (J2250 PER 1MG) As Ordered ONE; +PERCOCET 5MG/325MG TAB As Ordered ONE; +ceFAZolin 1GM VIAL (J0690 PER 500MG) As Ordered ONE; +diphenhydrAMINE 50MG/ML VIAL (J1200) As Ordered ONE; +fentaNYL 100 MCG/2 ML INJECTION (J3010) As Ordered ONE
--- NOTE | 2021-01-29 08:26 | IRHP ---
[facility] IR Pre-Procedure H & P General Date of Service: Jan 29, 2021 Procedure: Same Day Surgery Interval History and Physical I have seen the patient and reviewed last H & P performed within 30 days. There is no significant interval change. History of Present Illness Chief Complaint The patient is a 75-year-old female admitted with a reason for visit of Kidney Stone. PRE-PROCEDURE DIAGNOSIS: Right kidney stone HEART: Normal rate. LUNGS: Normal breathing at rest. ASA Classification ASA Classification: II-Mild systemic disease Mallampati Score: II NPO: Yes Problems with prior sedation: No Obstructive Sleep Apnea: No Plan moderate sedation Allergies Coded Allergies: No Known Allergies (Unverified , 03/19/19) Home Medications Scheduled Ascorbic Acid (Vitamin C), 500 MG PO DAILY, (Reported) Cholecalciferol (Vitamin D3) (Vitamin D3), 1,000 UNITS PO DAILY, (Reported) Conjugated Estrogens (Premarin), 0.3 MG PO DAILY, (Reported) Duloxetine Hcl (Duloxetine HCl), 20 MG PO DAILY, (Reported) Lactobacillus Acidophilus (Probiotic), 1 CAP PO DAILY, (Reported) Meloxicam (Meloxicam), 15 MG PO DAILY, (Reported) Discontinued Medications Cholecalciferol (Vitamin D3) (Vitamin D3), 1,000 UNIT PO DAILY, (Reported) Discontinued Reason: Re-entering as new Gabapentin (Gabapentin), (Reported) Discontinued Reason: Pt states not taking Oxycodone HCl (Oxycodone HCl), (Reported) Discontinued Reason: Pt states not taking VS, I&O, 24H, Fishbone Vital Signs/I&O Vital Signs Date Time Temp Pulse Resp B/P (MAP) Pulse Ox O2 Delivery O2 Flow Rate FiO2 01/29/21 08:07 98.0 85 18 98 Room Air Laboratory Data 24H LABS Laboratory Tests 2 01/29/21 08:19: CBC/BMP PHILLIP RUTHERFORD MD Jan 29, 2021 08:26
[2021-01-29 08:31] LABS: HEMATOCRIT 43.4 % (36.0-47.0); HEMOGLOBIN 13.8 g/dl (12.0-15.5); MEAN CORPUSCULAR HEMOGLOBIN 29.9 pg (27.0-33.0); MEAN CORPUSCULAR HGB CONC 31.8 g/dl (32.0-36.5); MEAN CORPUSCULAR VOLUME 93.9 fl (80.0-96.0); PLATELET COUNT, AUTOMATED 255 10^3/uL (150-450); RED BLOOD COUNT 4.62 10^6/uL (4.00-5.40); WHITE BLOOD COUNT 6.4 10^3/uL (4.0-10.0)
[2021-01-29 08:56] LABS: CALCIUM LEVEL 9.7 MG/DL (8.8-10.2); CREATININE FOR GFR 1.24 MG/DL (0.55-1.30); GLOMERULAR FILTRATION RATE 45.1 (>39); POTASSIUM SERUM 3.7 MEQ/L (3.5-5.1)
[2021-01-29 12:00] VITALS: BP 169/74
--- NOTE | 2021-01-31 10:05 | IRPON ---
IR Postoperative Note Date Of Procedure: Jan 29, 2021 Time Of Procedure: 16:00 IR Postoperative Note IR Percutaneous nephroureteral catheter placement using fluoroscopic and ul trasound guidance. IR PCNL access. IR Nephrostogram and Ureterogram Clinical Information:Right kidney stone. Needs PCNL access. Physician: Dr. Aguayo. Procedure: The patient was advised of the benefits, risks, and alternatives of the procedure and informed consent was obtained. A time out was performed with verification of the patient's name, MRN, site of procedure, and type of procedure to be performed. The patient was positioned in the prone position on the angiographic table. The site was prepped and draped in the usual sterile fashion. Moderate sedation was performed by the physician including the presence of an independent trained RN who, assisted in monitoring the patient's level of consciousness and physiological status. Following the administration of fentanyl and Versed, the physician spent 60 minutes of continuous [id number] time with the patient. A corporate auditor radiograph reveals a right renal staghorn calculus. The anticipated puncture site on the flank was anesthetized with lidocaine. Us ing fluoroscopy guidance, the stone was accessed with a 21 Gauge Chiba needle. A nephrostogram and ureterogram were performed demonstrating hydronephrosis and hydroureter and large filling defect in the pelvis occupied by this staghorn calculus. A second 21-gauge Chiba needle was then used under fluoroscopy guidance to access the mid pole calyx. A wire was advanced under fluoroscopy guidance, through the needle, around the stone and down the ureter. The needle was then exchanged for a nonvascular introducer set. This sheath was positioned in the proximal ureter and a repeat ureterogram was performed which demonstrates proximal ureteral dilation and distal decompression. An Amplatz wire was then advanced down the ureter under fluoroscopy guidance. This sheath was removed over the wire. A 6 Qatari Siedmon catheter was advanced over the wire, under fluoroscopy guidance, down the ureter and into the bladder. The pigtail was formed. A final nephrostogram and ureterogram were performed confirming positioning of the pigtail within the bladder with hydronephrosis and hydronephrosis. Ureterogram demonstrates hydroureter. The ureter is patent to the urinary bladder. The catheter was sutured in position with 2-0 Prolene and a sterile dressing applied. The catheter was capped. The patient tolerated the procedure well and was returned to the PRU in stable condition. EBL: < 5 mL. Complications:None. Conclusion: 1. Nephrostogram and Ureterogram demonstratelarge staghorn calculus in the right renal pelvis, hydronephrosis and proximal hydroureter. 2. Successful right nephroureteral catheter placement for PCNL access. Patient to follow-up with urology for PCNL. Thank you for this referral. Cc PHILLIP Bryant MD Jan 31, 2021 10:05
== END ==
LOC: M IRPRO 07:59
PROVIDERS: ATTEND Radiology Diagnostic Radiology
DX: N20.0 Calculus of kidney (principal); Z79.899 Other long term (current) drug therapy
CPT/HCPCS: 50433; 80048; 85027; 99152; 99153; C1758; C1769; C1887; C1894; J0690; J1200; J2250; J3010; Q9967

== ENCOUNTER 2021-01-31 06:28 | Inpatient (IN) | payer MEDICARE, OTHER ==
[~2021-01-31] VITALS: Ht 165.1 cm; Wt 78.5 kg
[2021-01-31] VITALS (7 sets, daily range): BP systolic 127–138; BP diastolic 72–86
[~2021-01-31 06:28] MED LIST changes: -ISOVUE-300 61% 50ML VIAL As Ordered ONE; -LIDOCAINE 1% MDV 20ML VIAL As Ordered ONE; -MIDAZOLAM INJ 2MG/2ML VIAL (J2250 PER 1MG) As Ordered ONE; -PERCOCET 5MG/325MG TAB As Ordered ONE; -ceFAZolin 1GM VIAL (J0690 PER 500MG) As Ordered ONE; -diphenhydrAMINE 50MG/ML VIAL (J1200) As Ordered ONE; -fentaNYL 100 MCG/2 ML INJECTION (J3010) As Ordered ONE
[2021-01-31] MEDS ORDERED: ceFAZolin SOD 2 GM in IV 1 EA IV ONE (07:00)
[2021-01-31] MEDS ORDERED: LR 1,000 ML IV ONE (07:00)
[2021-01-31] MEDS ORDERED: CONRAY-60 60% 50ML VIAL (Q9961) As Ordered ONE (07:19)
[2021-01-31] MEDS ORDERED: fentaNYL 250 MCG/5 ML INJECTION (J3010) As Ordered ONE (07:24)
[2021-01-31] MEDS ORDERED: dexameTHASONE 4 MG/ML 1ML VIAL (J1100 PER 1MG) As Ordered ONE (07:24)
[2021-01-31] MEDS ORDERED: propofoL 200 MG/20 ML VIAL As Ordered ONE (07:24)
[2021-01-31] MEDS ORDERED: ROCURONIUM BROMIDE 50 MG/5 ML VIAL As Ordered ONE (07:24)
[2021-01-31] MEDS ORDERED: LIDOCAINE 2% 100MG/5ML SDV (FOR ANES.) As Ordered ONE (07:24)
[2021-01-31] MEDS ORDERED: MIDAZOLAM INJ 2MG/2ML VIAL (J2250 PER 1MG) As Ordered ONE (07:24)
[2021-01-31] MEDS ORDERED: MORPHINE 2 MG/ML 1ML VIAL (J2270) IV PRN (07:35)
[2021-01-31] MEDS ORDERED: ONDANSETRON 4MG/2ML VIAL IV PRN ×2 (07:35→10:15)
[2021-01-31] MEDS ORDERED: PERCOCET 5MG/325MG TAB PO PRN (07:35)
[2021-01-31] MEDS ORDERED: ACETAMINOPHEN TAB 650MG DOSE (2X325MG) PO PRN (07:35)
[2021-01-31] MEDS ORDERED: ePHEDrine SULFATE 25 MG/5 ML(5MG/ML) SYRINGE As Ordered ONE ×2 (07:55→09:04)
[2021-01-31] MEDS ORDERED: PHENYLephrine 500MCG 5ML (100MCG/ML) SYRINGE As Ordered ONE (08:30)
[2021-01-31] MEDS: DOCUSATE SODIUM 100MG CAPSULE PO SCH ×2 (09:00→20:30)
[2021-01-31] MEDS ORDERED: ONDANSETRON 4MG/2ML VIAL As Ordered ONE (09:09)
[2021-01-31] MEDS ORDERED: ACETAMINOPHEN 1000MG 100ML IV BTL (OFIRMEV) (J0131 PER 10MG) As Ordered ONE (09:09)
[2021-01-31] MEDS ORDERED: SUGAMMADEX SODIUM 500 MG/5 ML VIAL (BRIDION) As Ordered ONE (09:09)
[2021-01-31] MEDS ORDERED: LABETALOL 100MG/20ML VIAL As Ordered ONE (09:44)
--- NOTE | 2021-01-31 09:58 | ROOPDOC ---
[facility] Report Of Operation Report of Operation DATE OF PROCEDURE: 01/31/21 PREPROCEDURE DIAGNOSIS: Right kidney stone. POSTPROCEDURE DIAGNOSIS: Right kidney stone. PROCEDURE: Right percutaneous nephrolithotomy, basket extraction of stones, right ureteroscopy, right antegrade nephrostogram with intraoperative interpretation of images, right ureteral stent placement. SURGEON: Dr. Nathanael Chou PRODUCT APPLICATIONS SCIENTIST: None ANESTHESIA: General. OPERATIVE INDICATIONS: This is a 75 year-old female with a 2.2cm right kidney stone. She was brought to the operating room today for the above-listed proced ure. DESCRIPTION OF PROCEDURE: The patient was brought to the operating room, and general anesthesia was induced. Prophylactic antibiotics were infused. A Riojas catheter was placed under sterile conditions. The patient was then repositioned in the prone position in preparation for a right-sided percutaneous nephrolithotomy. The patient was then prepped and draped in the usual sterile fashion. At this point, the previously-placed right nephroureteral stent was utilized to advance an Amplatz Super Stiff wire down the ureter and into the bladder. The nephroureteral stent was then removed, leaving the wire in place. Next, a 2-3 cm transverse incision was made adjacent to the wire. A dual-lumen ureteral catheter was then advanced down into the right kidney. The large stone could easily be seen on fluoroscopy. An antegrade nephrostogram was performed and was negative for extravasation. A Motion guidewire was then advanced down the ureter and into the bladder. The dual-lumen ureteral catheter was then re moved, leaving both wires in place. The Motion wire was then secured to the drape to serve as a safety wire. Next, over the Super Stiff wire, a balloon dilator was advanced into the right renal pelvis. The balloon was then inflated and left in place for a few seconds. Next, an access sheath was advanced over the balloon and into the right kidney. The balloon was then let down and removed, leaving the access sheath and the wire in place. At this point, a nephroscope was introduced into the right kidney. We were able to identify the large stone. The stone was then fragmented into several pieces and suctioned out using a ShockPulse lithotriptor. Additional small fragments were removed using a Perc NCircle basket. It appeared that all of the stone was removed. I then looked down the right ureter with a flexible cystoscope and no stone fragments were seen in the proximal to mid ureter. The cystoscope was then removed. Once this was done, I advanced a #7-Azeri x 22-32 cm double J ureteral stent down into the right collecting system. The wire was removed and there were adequate curls of the stent in the bladder and the right kidney. At this point, the access sheath was removed, and the Motion wire was utilized to advance a #18-Azeri [place] tip catheter down into the right collecting system. After the tip was within the renal pelvis, the balloon was inflated with about 2 mL of contrast. The [place] tip catheter was also utilized to shoot an antegrade nephrostogram, and this was negative for extravasation. We then secured the [place] tip catheter to the skin with a #2-0 silk suture. This was then connected to gravity drainage and marked the conclusion of the procedure. The patient was placed back in supine position, awakened from anesthesia, and transported to the recovery room in stable condition. ESTIMATED BLOOD LOSS: approximately 50 mL COMPLICATIONS: None. SPECIMENS: Right kidney stone fragments. PLAN: The patient will be admitted to the hospital postoperatively. I will likely remove her right nephrostomy catheter tomorrow. She will be discharged home with the plan to bring her to the office in 3-4 weeks to remove her stent. NATHANAEL CHOU MD Jan 31, 2021 07:43
[2021-01-31] MEDS ORDERED: HYDROMORPHONE HCL 0.5 MG/ 0.5 ML SYRINGE (J1170 PER 1) IV PRN (10:15)
[2021-01-31] MEDS ORDERED: oxyCODONE 5MG TAB PO PRN (10:15)
[2021-01-31] MEDS ORDERED: fentaNYL 100 MCG/2 ML INJECTION (J3010) IV PRN (10:15)
[2021-01-31] MEDS ORDERED: LR 1,000 ML IV SCH (10:15)
[2021-01-31 10:22] LABS: HEMATOCRIT 39.6 % (36.0-47.0); HEMOGLOBIN 12.1 g/dl (12.0-15.5); MEAN CORPUSCULAR HEMOGLOBIN 29.7 pg (27.0-33.0); MEAN CORPUSCULAR HGB CONC 30.6 g/dl (32.0-36.5); MEAN CORPUSCULAR VOLUME 97.1 fl (80.0-96.0); PLATELET COUNT, AUTOMATED 187 10^3/uL (150-450); RED BLOOD COUNT 4.08 10^6/uL (4.00-5.40); WHITE BLOOD COUNT 8.8 10^3/uL (4.0-10.0)
[2021-01-31 10:41] LABS: CALCIUM LEVEL 9.7 MG/DL (8.8-10.2); CREATININE FOR GFR 1.21 MG/DL (0.55-1.30); GLOMERULAR FILTRATION RATE 46.4 (>39); POTASSIUM SERUM 5.6 MEQ/L (3.5-5.1)
--- NOTE | 2021-01-31 11:07 | REP ---
INDICATION: NEPHROLITHIASIS. COMPARISON: None. TECHNIQUE: Nine views. 58.1 seconds of fluoroscopy time is reported. FINDINGS: A sequence of 9 last image hold fluoroscopically obtained spot radiographs the right abdomen document percutaneous access to the right collecting system for manipulation in treatment of staghorn calculus with right ureteral stenting. IMPRESSION: Procedural imaging. <Electronically signed by Octavio Lopez > 01/31/21 1017
[2021-01-31] MEDS: PERCOCET 5MG/325MG TAB PO PRN ×3 (11:38→23:53)
[2021-01-31] MEDS: NS 1,000 ML IV SCH (12:00)
[2021-01-31] MEDS: ceFAZolin SOD 1 GM in D5W MINI-BAG PLUS 50 ML IV SCH ×2 (16:38→23:52)
[2021-02-01] MEDS: NS 1,000 ML IV SCH ×2 (03:35→08:34)
[2021-02-01 06:17] LABS: HEMATOCRIT 35.7 % (36.0-47.0); HEMOGLOBIN 11.2 g/dl (12.0-15.5); MEAN CORPUSCULAR HEMOGLOBIN 29.4 pg (27.0-33.0); MEAN CORPUSCULAR HGB CONC 31.4 g/dl (32.0-36.5); MEAN CORPUSCULAR VOLUME 93.7 fl (80.0-96.0); PLATELET COUNT, AUTOMATED 220 10^3/uL (150-450); RED BLOOD COUNT 3.81 10^6/uL (4.00-5.40); WHITE BLOOD COUNT 12.8 10^3/uL (4.0-10.0)
[2021-02-01 06:41] LABS: CALCIUM LEVEL 9.3 MG/DL (8.8-10.2); CREATININE FOR GFR 1.07 MG/DL (0.55-1.30); GLOMERULAR FILTRATION RATE 53.5 (>39); POTASSIUM SERUM 3.9 MEQ/L (3.5-5.1)
[2021-02-01] MEDS: DOCUSATE SODIUM 100MG CAPSULE PO SCH (08:33)
[2021-02-01] MEDS: PERCOCET 5MG/325MG TAB PO PRN ×2 (08:34→17:16)
--- NOTE | 2021-02-01 10:31 | IPNPDOC ---
Subjective Review oF Systems Chief Complaint The patient is a 75-year-old female admitted with a reason for visit of Nephrolithiasis. Events since Last Encounter No acute events o/n. Good pain control. No n/v. Has not ambulated yet. No f/c/ns. Objective Physical Examination General Exam: Alert, Cooperative, No Acute Distress ABDOMEN EXAM: Soft Skin Exam: Nl turgor and temperature Neuro Exam: Normal Speech Psych Exam: Mental status NL, Mood NL Other physical findings R nephrostomy catheter draining pink urine; urethral catheter draining small amount of noam colored urine Vital Signs/I&O Vital Signs Date Time Temp Pulse Resp B/P (MAP) Pulse Ox O2 Delivery O2 Flow Rate FiO2 02/01/21 09:05 16 02/01/21 00:23 97 Room Air 01/31/21 22:00 98.1 96 138/72 (94) 01/31/21 10:05 3 I&O- Last 24 Hours up to 6 AM 02/01/21 06:00 Intake Total 1850 ml Output Total 1550 ml Balance 300 ml Laboratory Data Labs 24H Laboratory Tests 2 02/01/21 06:03: Nucleated Red Blood Cells % (auto) 0.0, Anion Gap 9, Glomerular Filtration Rate 53.5, Calcium Level 9.3 CBC/BMP Laboratory Tests 02/01/21 06:03 Assessment/Plan Date Seen The patient was seen on 02/01/21. Patient Summary This is a 75 y/o F POD1 s/p R PCNL. Hb stable. Good UOP - mainly from the R nephrostomy tube. The nephrostomy tube was removed this morning. Plan/VTE VTE Prophylaxis Ordered?: Yes VTE Exclusion Mechanical Proph: N/A:VTE Prophy Ordered Plan - will monitor UOP from the urethral catheter now that the R nephrostomy tube was removed - can d/c the urethral catheter as long as the patient does not have an increase in hematuria - d/c IVF - percocet prn pain - strict I/Os - SCDs while in bed - incentive spirometry - ambulate - advance diet as tolerated - likely discharge home later today NATHANAEL CHOU MD Feb 01, 2021 10:31
[2021-02-01 14:00] VITALS: BP 135/68
[2021-02-01] MEDS ORDERED: PYRI1TAB5 PO (16:10)
--- NOTE | 2021-02-01 16:35 | DSES ---
DISCHARGE SUMMARY DATE OF ADMISSION: 01/31/2021 DATE OF DISCHARGE: 02/01/2021 ADMISSION DIAGNOSIS: Kidney stone. DISCHARGE DIAGNOSIS: Kidney stone. ADMITTING PHYSICIAN: Dr. Thomas Simon DISCHARGING PHYSICIAN: Dr. Thomas Simon PROCEDURE PERFORMED: A right percutaneous nephrolithotomy on 01/31/2021. HISTORY OF PRESENT ILLNESS: This is a 75-year-old female who was found to have an approximately 2.2 cm right-sided renal pelvis stone. She underwent the above-listed procedure for treatment and was admitted to the hospital postoperatively. HOSPITALIZATION COURSE: The patient was admitted to the hospital after undergoing the above-listed procedure. Her postoperative course was unremarkable. By postoperative day #1, she was having large amount of urine output from her right nephrostomy catheter and a small amount from her Riojas catheter. Her labs on postoperative day #1 were notable for a hemoglobin which was stable at 11.2 and serum creatinine which was 1.07. Her right nephrostomy catheter was removed the morning of postoperative day #1. She did have a slight increase in right flank pain when that happened, but that improved throughout the course of the day. Subsequently her Riojas catheter was removed, and she voided without any difficulty. She started ambulating well without difficulty. Her diet was advanced, and she tolerated a regular diet. By the afternoon of postoperative day #1, she was ready for discharge home. She was discharged home with the plan for her to followup in the urology clinic in approximately 3-4 weeks for stent removal.
[2021-02-07 23:07] LABS: CA Hydro Phos 90 % (.); CA Oxalate Dihy 10 % (.); Size 8x6 mm (.)
== END 2021-02-01 17:21 | disposition home or self-care (01) | DRG 661 ==
LOC: M OR 06:28 → M MS5PR 11:00
PROVIDERS: ADMIT Urology; ATTEND Urology
PROC: 0T9630Z Drainage of Right Ureter with Drainage Device, Percutaneous Approach (ICD-10-PCS; principal; 2021-01-29)
PROC: 0TC03ZZ Extirpation of Matter from Right Kidney, Percutaneous Approach (ICD-10-PCS; 2021-01-31)
PROC: 0T768DZ Dilation of Right Ureter with Intraluminal Device, Via Natural or Artificial Opening Endoscopic (ICD-10-PCS; 2021-01-31)
DX: N20.0 Calculus of kidney (principal); Z79.899 Other long term (current) drug therapy

== ENCOUNTER → 2021-02-21 | Outpatient (REF) | payer MEDICARE, OTHER ==
[2021-02-21 16:52] LABS: APPEARANCE, URINE TURBID (CLEAR); BACTERIA, URINE AUTO 1+ (NEGATIVE); BILIRUBIN, URINE AUTO NEGATIVE (NEGATIVE); BLOOD, URINE BLOOD 3+ (NEGATIVE); COLOR, URINE AMBER (YELLOW); GLUCOSE, URINE (UA) AUTO NEGATIVE (NEGATIVE); KETONE, URINE AUTO NEGATIVE (NEGATIVE); LEUKOCYTE ESTERASE, URINE AUTO 3+ (NEGATIVE); NITRITE, URINE AUTO NEGATIVE (NEGATIVE); PROTEIN, URINE AUTO 3+ mg/dL (NEGATIVE); RBC, URINE AUTO TNTC /HPF (0-3); SPECIFIC GRAVITY URINE AUTO 1.013 (1.002-1.035); SQUAMOUS EPITHELIAL CELL UR AU 8 /HPF (0-6); UROBILINOGEN, URINE AUTO 0.2 mg/dL (0.0-2.0); WBC, URINE AUTO TNTC /HPF (0-3)
== END ==
LOC: M LABSMT 14:22 → M SFHCADAM 14:22
PROVIDERS: ATTEND Nurse Practitioner Women's Health
DX: R30.0 Dysuria (principal)

== ENCOUNTER → 2021-03-20 | Outpatient (REF) | payer MEDICARE, OTHER ==
[2021-03-20 17:14] LABS: APPEARANCE, URINE CLOUDY (CLEAR); BACTERIA, URINE AUTO NEGATIVE (NEGATIVE); BILIRUBIN, URINE AUTO NEGATIVE (NEGATIVE); BLOOD, URINE BLOOD NEGATIVE (NEGATIVE); COLOR, URINE YELLOW (YELLOW); GLUCOSE, URINE (UA) AUTO NEGATIVE (NEGATIVE); KETONE, URINE AUTO NEGATIVE (NEGATIVE); LEUKOCYTE ESTERASE, URINE AUTO TRACE (NEGATIVE); MUCUS, URINE SMALL (NEGATIVE); NITRITE, URINE AUTO NEGATIVE (NEGATIVE); PROTEIN, URINE AUTO 1+ mg/dL (NEGATIVE); RBC, URINE AUTO 0 /HPF (0-3); SPECIFIC GRAVITY URINE AUTO 1.017 (1.002-1.035); SQUAMOUS EPITHELIAL CELL UR AU 10 /HPF (0-6); UROBILINOGEN, URINE AUTO 0.2 mg/dL (0.0-2.0); WBC, URINE AUTO 12 /HPF (0-3)
[2021-03-20 17:31] LABS: PERCENT SATURATION 19.3 % (13.2-45.0)
== END ==
LOC: M LAB REF 16:11
PROVIDERS: ATTEND Internal Medicine
DX: Z01.818 Encounter for other preprocedural examination (principal); M16.11 Unilateral primary osteoarthritis, right hip; M25.551 Pain in right hip

== ENCOUNTER 2021-07-03 19:53 | Inpatient (IN) | payer MEDICARE, OTHER ==
[~2021-07-03] VITALS: Ht 165.1 cm; Wt 73.0 kg
--- NOTE | 2021-07-03 21:35 | REPVR ---
PROCEDURE INFORMATION: Exam: XR Chest Exam date and time: 07/03/2021 8:45 PM Age: 76 years old Clinical indication: Other: Change in mental status; Additional info: Fuo TECHNIQUE: Imaging protocol: XR of the chest. Views: 1 view. COMPARISON: DX CHEST 2 VIEW 01/15/2021 2:51 PM FINDINGS: Lungs: Unremarkable. No consolidation. Pleural spaces: Unremarkable. No pleural effusion. No pneumothorax. Heart/Mediastinum: Unremarkable. No cardiomegaly. Bones/joints: Unremarkable. IMPRESSION: No acute findings. Electronically signed by: Amilcar Dominguez On 07/03/2021 21:35:04 PM
[2021-07-03 21:47] LABS: BASO % 0.3 % (0.0-1.0); HEMATOCRIT 39.3 % (36.0-47.0); HEMOGLOBIN 12.8 g/dl (12.0-15.5); LYMPH % 6.6 % (24.0-44.0); MEAN CORPUSCULAR HEMOGLOBIN 28.6 pg (27.0-33.0); MEAN CORPUSCULAR HGB CONC 32.6 g/dl (32.0-36.5); MEAN CORPUSCULAR VOLUME 87.9 fl (80.0-96.0); MONO # 1.4 10^3/uL (0.0-0.8); MONO % 9.3 % (2.0-8.0); NEUTROPHILS # 12.1 10^3/uL (1.5-8.5); NEUTROPHILS % 82.6 % (36.0-66.0); PLATELET COUNT, AUTOMATED 169 10^3/uL (150-450); RED BLOOD COUNT 4.47 10^6/uL (4.00-5.40); WHITE BLOOD COUNT 14.6 10^3/uL (4.0-10.0)
[2021-07-03 21:57] LABS: CALCIUM LEVEL 9.7 MG/DL (8.8-10.2); CREATININE FOR GFR 2.02 MG/DL (0.55-1.30); GLOMERULAR FILTRATION RATE 25.6 (>39); POTASSIUM SERUM 3.9 MEQ/L (3.5-5.1)
--- NOTE | 2021-07-04 00:20 | REPVR ---
PROCEDURE INFORMATION: Exam: CT Abdomen And Pelvis Without Contrast Exam date and time: 07/03/2021 11:05 PM Age: 76 years old Clinical indication: Abdominal pain; Generalized; Additional info: R/O obstructive pyelonephritis TECHNIQUE: Imaging protocol: Computed tomography of the abdomen and pelvis without contrast. Radiation optimization: All CT scans at this facility use at least one of these dose optimization techniques: automated exposure control; mA and/or kV adjustment per patient size (includes targeted exams where dose is matched to clinical indication); or iterative reconstruction. COMPARISON: CT ABD PELVIS W/O FOL BY WIT 11/23/2020 9:29 AM FINDINGS: Lungs: No suspicious mass or airspace process in the visualized lung bases. Liver: Noncontrast liver shows no obvious lesion. Gallbladder and bile ducts: Gallbladder is present and shows no evidence of gallstone. Pancreas: Noncontrast pancreas shows no obvious mass or adjacent fluid. Spleen: Noncontrast spleen shows no obvious focal deformity. Adrenal glands: Adrenal glands are normal in appearance. Kidneys and ureters: Kidneys demonstrate nonobstructive bilateral renal calculi. Mild left hydronephrosis is also present secondary to a 2 mm left UVJ stone. Stomach and bowel: No evidence of small bowel obstruction. Diverticular changes are present within the colon without inflammation. Appendix: Mildly prominent appendix is unchanged compared with the prior CT from November. Intraperitoneal space: No pneumoperitoneum. Vasculature: Atherosclerotic change present in the aorta, without aneurysm. Lymph nodes: Small retroperitoneal lymph nodes are present. Urinary bladder: Urinary bladder appears normal. Reproductive: Uterus is surgically absent. Bones/joints: Postsurgical changes are present in the lower lumbar spine. Right hip arthroplasty hardware Soft tissues: No concerning focal abnormality of the extra-abdominal and pelvic soft tissues. Other findings: Limited evaluation without enteric or IV contrast. IMPRESSION: 1. Mild left hydronephrosis secondary to a 2 mm left UVJ stone 2. Colonic diverticulosis without evidence of active diverticulitis. Electronically signed by: Hugo Vaz On 07/04/2021 00:20:33 AM
[2021-07-04] MEDS ORDERED: cefTRIAXone SOD 2 GM in D5W MINI-BAG PLUS 50 ML IV ONE (00:30)
[2021-07-04] MEDS ORDERED: TAMSULOSIN 0.4 MG CAP PO ONE (00:50)
[2021-07-04] MEDS ORDERED: ESTR625TA PO (01:12)
[2021-07-04] MEDS ORDERED: CALC1TAB30 PO (01:12)
[2021-07-04] MEDS ORDERED: BACITAB PO (01:12)
[2021-07-04] MEDS ORDERED: C 50TAB PO (01:12)
[2021-07-04] MEDS ORDERED: FLON1SPR (01:12)
[2021-07-04] MEDS ORDERED: MELO15TA28 PO (01:12)
[2021-07-04] MEDS ORDERED: OXYC-517 PO (01:12)
[2021-07-04] MEDS ORDERED: DULO30CA9 PO (01:12)
[2021-07-04] MEDS ORDERED: D31000TA2 PO (01:12)
[2021-07-04] MEDS ORDERED: HOME MED LIST COMPLETE! XX SCH (01:15)
[2021-07-04] MEDS ORDERED: ACETAMINOPHEN TAB 650MG DOSE (2X325MG) PO PRN (02:45)
[2021-07-04] MEDS ORDERED: NS 1,000 ML IV SCH ×3 (02:45→23:40)
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
[2021-07-04] MEDS ORDERED: MOM 30ML SUSPENSION UDC PO PRN (03:00)
[2021-07-04] MEDS ORDERED: MAALOX 30 ML SUSP *UDC PO PRN (03:00)
[2021-07-04] MEDS ORDERED: MORPHINE 2 MG/ML 1ML VIAL (J2270) IV ONE (03:20)
[2021-07-04] MEDS ORDERED: MORPHINE 2 MG/ML 1ML VIAL (J2270) IV PRN (04:00)
[2021-07-04 04:12] VITALS: BP 140/78
[2021-07-04 06:00] VITALS: BP 130/65
[2021-07-04] MEDS ORDERED: ALBUTEROL SULFATE 2.5 MG/0.5 ML INH NEB SOLN NEB ONE (06:10)
[2021-07-04] MEDS: ceFAZolin SOD 1 GM in D5W MINI-BAG PLUS 50 ML IV SCH ×2 (08:27→15:55)
[2021-07-04] MEDS ORDERED: oxyBUTYnin 5 MG TAB PO PRN (08:40)
[2021-07-04 09:12] LABS: HEMATOCRIT 36.2 % (36.0-47.0); HEMOGLOBIN 11.8 g/dl (12.0-15.5); MEAN CORPUSCULAR HEMOGLOBIN 29.1 pg (27.0-33.0); MEAN CORPUSCULAR HGB CONC 32.6 g/dl (32.0-36.5); MEAN CORPUSCULAR VOLUME 89.2 fl (80.0-96.0); PLATELET COUNT, AUTOMATED 151 10^3/uL (150-450); RED BLOOD COUNT 4.06 10^6/uL (4.00-5.40); WHITE BLOOD COUNT 12.3 10^3/uL (4.0-10.0)
[2021-07-04 09:34] LABS: CALCIUM LEVEL 9.4 MG/DL (8.8-10.2); CREATININE FOR GFR 1.95 MG/DL (0.55-1.30); GLOMERULAR FILTRATION RATE 26.7 (>39); POTASSIUM SERUM 3.5 MEQ/L (3.5-5.1)
[2021-07-04 09:53] LABS: ATYPICAL LYMPH 1 % (0-5); LYMPHOCYTES 5 % (16-44); MONOCYTES 13 % (0-5); NEUTROPHILS 81 % (28-66); PLATELET ESTIMATE NORMAL (NORMAL)
--- NOTE | 2021-07-04 13:11 | SMCUROLCON ---
Urology Consultation General Date of Consultation 07/04/21 Reason For Consultation This patient is seen for Obstructive Pyelonephritis/ Ureterolothiasis. History of Present Illness This is a 76 y/o F w/ a PMH significant for kidney stones, IBS, diverticulosis, chronic back pain, and endometriosis, admitted to the hospital for JOHANNE and a UTI/possible pyelonephritis. She notes a 3-4 day history of LLQ abd pain, n/v, and worsening "mental fogginess". Work up in the ED was notable for a bump in Cr to 2 from a baseline of about 1, a WBC of 14.6, and fevers up to 100.9. Her UA was notable for multiple WBCs and bacteria. A noncontrast CT A/P was notable for an obstructing 2mm L UVJ stone w/ mild hydro as well as b/l kidney stones w/ a 2mm stone in the R kidney and a 5mm stone in the L kidney. This morning she feels much better. Her abd pain is mild. The nausea has resolved. Past Medical History Medical History see HPI Surgical Hstory Partial Hysterectomy C section x2 multiple ESWLs R PCNL on 01/31/21 Medications Current Medications Current Medications Medications (Trade) Dose Ordered Sig/Sheila Route PRN Reason Start Time Stop Time Status Last Admin Dose Admin Acetaminophen (Tylenol Tab) 650 mg Q4H PRN PO MILD PAIN or TEMP > 101 07/04/21 02:45 07/04/21 10:47 Al Hydrox/Mg Hydrox/Simethicone (Mylanta) 30 ml DAILY PRN PO DYSPEPSIA 07/04/21 03:00 Cefazolin Sodium 1 gm/Dextrose 50 ml @ 100 mls/hr Q8H IV 07/04/21 08:00 07/04/21 08:27 Home Med (Home Med List Complete!) ASDIRECTED XX 07/04/21 01:15 07/04/21 01:18 DC Magnesium Hydroxide (Milk Of Magnesia) 30 ml DAILY PRN PO CONSTIPATION 07/04/21 03:00 Morphine Sulfate (Morphine Sulfate Inj) 2 mg Q2HP PRN IV MODERATE PAIN (PS 5-7) 07/04/21 04:00 Oxybutynin Chloride (Ditropan) 5 mg TIDP PRN PO BLADDER SPASM 07/04/21 08:40 07/04/21 10:47 Sodium Chloride 1,000 ml @ 70 mls/hr [id number] IV 07/04/21 02:45 07/04/21 03:30 Allergies Allergies: Coded Allergies: shellfish derived (Verified Allergy, Severe, anaphylaxis, 01/31/21) Review of Systems General: Reports: Fatigue, Normal Appetite; Denies: Chills Skin: Denies: Rash, Lesions, Breakdown, Nail Changes Pulmonary: Denies: Dyspnea, Cough Cardiovascular: Denies Chest Pain, Denies Palpitations Gastrointestinal: Reports: Nausea (improved), Abdominal Pain (improved); Denies: Vomiting Genitourinary: Denies: Dysuria, Frequency, Incontinence, Hematuria Musculoskeletal: Denies: Neck Pain, Back Pain Neurological: Reports: Weakness Psych: Reports: Mood Normal Physical Examination General Exam: Alert, Cooperative, No Acute Distress ENT EXAM: Atraumatic Chest Exam: Normal air movement Heart Exam: Tachycardic Abdomen Exam: Soft, Tenderness (mild LLQ) Female Exam catheter draining onam urine w/ some debris Skin Exam: Nl turgor and temperature Neuro Exam: Normal Speech Psych Exam: Mental status NL, Mood NL Vital Signs/I&O Vital Signs Date Time Temp Pulse Resp B/P (MAP) Pulse Ox O2 Delivery O2 Flow Rate FiO2 07/04/21 06:00 97.0 104 18 130/65 (86) 92 Room Air I&O- Last 24 Hours up to 6 AM 07/04/21 05:59 Intake Total 89 ml Balance 89 ml Laboratory Data 24H Labs Laboratory Tests 2 07/03/21 20:50: Urine Color YELLOW, Urine Appearance CLOUDYH, Urine pH 6.0, Urine Specific [place] 1.012, Urine Protein 2+H, Urine Glucose (UA) NEGATIVE, Urine Ketones TRACEH, Urine Blood 3+H, Urine Nitrite NEGATIVE, Urine Bilirubin NEGATIVE, Urine Urobilinogen 0.2, Urine Leukocyte Esterase 3+H, Urine WBC (Auto) 146H, Urine RBC (Auto) 24H, Urine Hyaline Casts (Auto) 0, Urine Bacteria (Auto) 2+H, Urine Squamous Epithelial Cells 1, Urine Amorphous Sediment SMALLH, Urine Sperm (Auto) 07/03/21 21:11: Anion Gap 6L, Glomerular Filtration Rate 25.6L, Calcium Level 9.7 07/03/21 21:12: Immature Granulocyte % (Auto) 1.2, Neutrophils (%) (Auto) 82.6H, Lymphocytes (%) (Auto) 6.6L, Monocytes (%) (Auto) 9.3H, Eosinophils (%) (Auto) 0.0, Basophils (%) (Auto) 0.3, Neutrophils # (Auto) 12.1H, Lymphocytes # (Auto) 1.0L, Monocytes # (Auto) 1.4H, Eosinophils # (Auto) 0.0, Basophils # (Auto) 0.0, Nucleated Red Blood Cells % (auto) 0.0, Lactic Acid Level 1.6 07/04/21 06:59: Bedside Glucose (Misc Panel) 114H 07/04/21 08:52: Neutrophils (%) (Auto) , Nucleated Red Blood Cells % (auto) 0.0, Neutrophils 81H, Lymphocytes (Manual) 5L, Monocytes (Manual) 13H, Atypical Lymphocytes 1, Red Blood Cell Morphology NORMAL, Platelet Estimate NORMAL, Anion Gap 10, Glomerular Filtration Rate 26.7L, Calcium Level 9.4 07/04/21 11:21: Bedside Glucose (Misc Panel) 129H CBC/BMP Laboratory Tests 07/03/21 21:11 07/03/21 21:12 07/04/21 08:52 Microbiology Microbiology 07/03/21 Respiratory Virus Panel (PCR) ([facility]) - Final, Complete 07/03/21 Blood Culture, Received Pending 07/03/21 Blood Culture, Received Pending 07/03/21 Urine Culture, Worksheet Pending Assessment This is a 76 y/o F admitted for JOHANNE and a UTI/L pyelonephritis, as well as an obstructing 2mm L UVJ stone. She is doing better today. I explained that the stone will likely pass (if not already done). Should she not continue to improve, we would need to take her to the OR for a cysto, L ureteroscopy w/ basket extraction of stone, and L stent placement. I suspect this will not be necessary. Plan - patient admitted to hospitalist service - continue broad spectrum abx and adjust based on culture results - flomax 0.4mg daily - IVF hydration - catheter drainage for now - likely d/c tomorrow - strain all urine - ok for regular diet as no plan for surgery at this time NATHANAEL CHOU MD Jul 04, 2021 13:11
[2021-07-04 14:00] VITALS: BP 111/57
[2021-07-04 17:46] LABS: C REACTIVE PROTEIN QUANTITATIV 27.9 MG/DL (0.00-0.30)
[2021-07-04 18:25] LABS: ERYTHROCYTE SEDIMENTATION RATE 60 mm/hr (0-30)
[2021-07-04 22:00] VITALS: BP 127/58
[2021-07-04 22:35] LABS: CALCIUM LEVEL 9.1 MG/DL (8.8-10.2); CREATININE FOR GFR 1.78 MG/DL (0.55-1.30); GLOMERULAR FILTRATION RATE 29.7 (>39); POTASSIUM SERUM 3.5 MEQ/L (3.5-5.1)
[2021-07-05 06:00] VITALS: BP 137/77
[2021-07-05 06:04] LABS: HEMATOCRIT 39.4 % (36.0-47.0); HEMOGLOBIN 12.6 g/dl (12.0-15.5); MEAN CORPUSCULAR HEMOGLOBIN 28.9 pg (27.0-33.0); MEAN CORPUSCULAR VOLUME 90.4 fl (80.0-96.0); PLATELET COUNT, AUTOMATED 156 10^3/uL (150-450); RED BLOOD COUNT 4.36 10^6/uL (4.00-5.40); WHITE BLOOD COUNT 9.4 10^3/uL (4.0-10.0)
[2021-07-05 06:30] LABS: CALCIUM LEVEL 9.2 MG/DL (8.8-10.2); CREATININE FOR GFR 1.6 MG/DL (0.55-1.30); GLOMERULAR FILTRATION RATE 33.5 (>39); POTASSIUM SERUM 3.8 MEQ/L (3.5-5.1)
--- NOTE | 2021-07-05 07:36 | ECGEPIP ---
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
[2021-07-05] MEDS: TAMSULOSIN 0.4 MG CAP PO SCH (07:51)
[2021-07-05] MEDS ORDERED: NS 1,000 ML IV ONE ×2 (08:10→12:35)
[2021-07-05] MEDS ORDERED: oxyBUTYnin 5 MG TAB PO ONE (08:40)
[2021-07-05] MEDS ORDERED: MORPHINE 2 MG/ML 1ML VIAL (J2270) IV ONE (08:40)
[2021-07-05] MEDS ORDERED: MORPHINE 30 MG TAB **MSIR PO ONE (08:40)
--- NOTE | 2021-07-05 12:43 | IPNPDOC ---
Date Seen The patient was seen on 07/05/21. Progress Note SUBJECTIVE: Denies any fever chills shortness of breath. Complains of flank pain. Riojas catheter discontinued awaiting trial of voiding. OBJECTIVE PHYSICAL EXAMINATION: VITAL SIGNS: Please see below. GENERAL: No distress HEENT: No JVD thyromegaly moist mucous membranes CARDIOVASCULAR: S1-S2 regular rate rhythm RESPIRATORY: Diminished breath sounds but clear to auscultation no wheezing or rales ABDOMINAL: Positive bowel sounds softnondistended positive CVA tenderness Riojas has been discontinued EXTREMITIES: No cyanosis clubbing or pitting edema LABORATORY DATA, IMAGING STUDIES, MICROBIOLOGY: Please see below. ASSESSMENT: 76-year-old with history of right large staghorn stone with i ntrarenal hydronephrosis status post lithotripsy and stent placement, removal of the stent presents with acute kidney injury creatinine of 2.[address] showing left-sided hydronephrosis due to a 2 mm stone at the UVJ junction. Obstructive uropathy Acute kidney injury Hydronephrosis 2 mm left UVJ stone Urinary tract infection in the setting of obstructive uropathy with a left UVJ stone Bacteremia most likely transient secondary to UTI PLAN: Awaiting identification of the bacteria in the blood culture. Continue on antibiotics Trial of IV fluids until creatinine is back to normal baseline Monitor for respiratory distress Trial of voiding after Riojas catheter has been discontinued If creatinine is back to baseline of 1.3 or lower, patient may be discharged home once blood culture has been finalized VS, I&O, 24H, [facility] Vital Signs/I&O Vital Signs Date Time Temp Pulse Resp B/P (MAP) Pulse Ox O2 Delivery O2 Flow Rate FiO2 07/05/21 09:25 20 07/05/21 08:52 Room Air 07/05/21 06:00 97.4 82 137/77 (97) 100 I&O- Last 24 Hours up to 6 AM 07/05/21 06:00 Intake Total 2980 ml Output Total 1700 ml Balance 1280 ml Laboratory Data 24H LABS Laboratory Tests 2 07/04/21 19:32: Bedside Glucose (Misc Panel) 172H 07/04/21 22:07: Anion Gap 8, Glomerular Filtration Rate 29.7L, Calcium Level 9.1 07/05/21 05:12: Anion Gap 7L, Glomerular Filtration Rate 33.5L, Calcium Level 9.2, Nucleated Red Blood Cells % (auto) 0.0 07/05/21 05:19: Bedside Glucose (Misc Panel) 109 CBC/BMP Laboratory Tests 07/04/21 22:07 07/05/21 05:12 Microbiology Microbiology 07/04/21 Blood Culture, Received Pending 07/04/21 Blood Culture, Received Pending 07/03/21 Respiratory Virus Panel (PCR) ([facility]) - Final, Complete 07/03/21 Blood Culture - Preliminary, Resulted 07/03/21 Blood Culture - Preliminary, Resulted No growth after 24 hours . All specim... 07/03/21 Urine Culture, Worksheet Pending BELÉN MAYA MD Jul 05, 2021 12:43
--- NOTE | 2021-07-05 13:37 | IPNPDOC ---
Subjective Review oF Systems Chief Complaint The patient is a 76-year-old female admitted with a reason for visit of Obstructive Pyelonephritis/ Ureterolothiasis. Events since Last Encounter No acute events o/n. Patient has minimal LLQ abd discomfort. She notes that she is feeling much better. Denies n/v. No f/c/ns. Objective Physical Examination General Exam: Alert, Cooperative, No Acute Distress ABDOMEN EXAM: Soft, Tenderness (mild LLQ tenderness) Skin Exam: Nl turgor and temperature Neuro Exam: Normal Speech Psych Exam: Mental status NL, Mood NL Other physical findings catheter draining clear yellow urine Vital Signs/I&O Vital Signs Date Time Temp Pulse Resp B/P (MAP) Pulse Ox O2 Delivery O2 Flow Rate FiO2 07/05/21 06:00 97.4 82 18 137/77 (97) 100 Room Air I&O- Last 24 Hours up to 6 AM 07/05/21 06:00 Intake Total 2980 ml Output Total 1700 ml Balance 1280 ml Laboratory Data Labs 24H Laboratory Tests 2 07/04/21 08:52: Neutrophils (%) (Auto) , Nucleated Red Blood Cells % (auto) 0.0, Neutrophils 81H, Lymphocytes (Manual) 5L, Monocytes (Manual) 13H, Atypical Lymphocytes 1, Red Blood Cell Morphology NORMAL, Platelet Estimate NORMAL, Erythrocyte Sedimentation Rate 60H, Anion Gap 10, Glomerular Filtration Rate 26.7L, Calcium Level 9.4, C-Reactive Protein, Quantitative 27.90H, Procalcitonin 18.92 07/04/21 11:21: Bedside Glucose (Misc Panel) 129H 07/04/21 19:32: Bedside Glucose (Misc Panel) 172H 07/04/21 22:07: Anion Gap 8, Glomerular Filtration Rate 29.7L, Calcium Level 9.1 07/05/21 05:12: Nucleated Red Blood Cells % (auto) 0.0, Anion Gap 7L, Glomerular Filtration Rate 33.5L, Calcium Level 9.2 07/05/21 05:19: Bedside Glucose (Misc Panel) 109 CBC/BMP Laboratory Tests 07/04/21 08:52 07/04/21 22:07 07/05/21 05:12 FSBS Laboratory Tests Test 07/04/21 11:21 07/04/21 19:32 07/05/21 05:19 Range/Units Bedside Glucose (Misc Panel) 129 172 109 83-110 MG/DL Microbiology Microbiology 07/04/21 Blood Culture, Received Pending 07/04/21 Blood Culture, Received Pending 07/03/21 Respiratory Virus Panel (PCR) ([facility]) - Final, Complete 07/03/21 Blood Culture - Preliminary, Resulted 07/03/21 Blood Culture - Preliminary, Resulted No growth after 24 hours . All specim... 07/03/21 Urine Culture, Worksheet Pending Assessment/Plan Date Seen The patient was seen on 07/05/21. Patient Summary This is a 76 y/o F admitted for JOHANNE and sepsis 2/2 UTI and an obstructing 2mm L UVJ stone. She is doing much better. Her WBC is normal. Her Cr is trending down, now 1.6. It is possible that she has already passed the kidney stone. Plan/VTE VTE Prophylaxis Ordered?: Yes VTE Exclusion Mechanical Proph: N/A:VTE Prophy Ordered Plan - d/c Riojas - continue broad spectrum abx and adjust based on culture results - strain urine - flomax - as long as patient continues to improve clinically, I do not anticipate the need for surgery NATHANAEL CHOU MD Jul 05, 2021 07:57
[2021-07-05 13:47] LABS: C REACTIVE PROTEIN QUANTITATIV 17.6 MG/DL (0.00-0.30); CALCIUM LEVEL 9.1 MG/DL (8.8-10.2); CREATININE FOR GFR 1.42 MG/DL (0.55-1.30); GLOMERULAR FILTRATION RATE 38.5 (>39); POTASSIUM SERUM 3.6 MEQ/L (3.5-5.1)
[2021-07-05] MEDS ORDERED: cefTRIAXone SOD 1 GM in D5W MINI-BAG PLUS 50 ML IV SCH (16:00)
[2021-07-05 22:00] VITALS: BP 134/76
[2021-07-06 06:00] VITALS: BP 115/60
[2021-07-06] MEDS ORDERED: BACI1CAP PO (07:45)
[2021-07-06] MEDS ORDERED: LEVO750T13 PO (07:45)
[2021-07-06] MEDS ORDERED: OXYB5TAB10 PO (07:45)
[2021-07-06] MEDS ORDERED: FLOM0.4C39 PO (07:58)
--- NOTE | 2021-07-06 08:01 | IPNPDOC ---
Subjective Review oF Systems Chief Complaint The patient is a 76-year-old female admitted with a reason for visit of Obstructive Pyelonephritis/ Ureterolothiasis. Events since Last Encounter No acute events o/n. Denies pain. No n/v. No f/c/ns. Objective Physical Examination General Exam: Alert, Cooperative, No Acute Distress ABDOMEN EXAM: Soft, Hernia; No: Tenderness Skin Exam: Nl turgor and temperature Neuro Exam: Normal Speech Psych Exam: Mental status NL, Mood NL Vital Signs/I&O Vital Signs Date Time Temp Pulse Resp B/P (MAP) Pulse Ox O2 Delivery O2 Flow Rate FiO2 07/06/21 06:00 97.6 75 18 115/60 (78) 98 Room Air I&O- Last 24 Hours up to 6 AM 07/06/21 06:00 Intake Total 4000 ml Output Total 2200 ml Balance 1800 ml Laboratory Data Labs 24H Laboratory Tests 2 07/05/21 12:59: Erythrocyte Sedimentation Rate 62H, Anion Gap 7L, Glomerular Filtration Rate 38.5L, Calcium Level 9.1, C-Reactive Protein, Quantitative 17.60H, Procalcitonin 7.97 CBC/BMP Laboratory Tests 07/05/21 12:59 Microbiology Microbiology 07/04/21 Blood Culture - Preliminary, Resulted No growth after 24 hours . All specim... 07/04/21 Blood Culture - Preliminary, Resulted No growth after 24 hours . All specim... 07/03/21 Respiratory Virus Panel (PCR) ([facility]) - Final, Complete 07/03/21 Blood Culture - Final, Complete Klebsiella Pneumoniae 07/03/21 Blood Culture - Preliminary, Resulted No Growth after 48 hours. All Specime... 07/03/21 Urine Culture - Final, Complete Klebsiella Pneumoniae Assessment/Plan Date Seen The patient was seen on 07/06/21. Patient Summary This is a 76 y/o F admitted for JOHANNE and sepsis 2/2 UTI and an obstructing 2mm L UVJ stone. Her Cr was down to 1.4 yesterday. She has no pain. Urine and blood cultures growing Klebsiella. Plan/VTE VTE Prophylaxis Ordered?: Yes VTE Exclusion Mechanical Proph: N/A:VTE Prophy Ordered Plan - no surgery needed given clinical improvement - culture specific antibiotics - continue flomax at discharged for 1 month - my office will arrange f/u for her to be seen in w/i the next 1-2 weeks w/ a LUDY prior NATHANAEL CHOU MD Jul 06, 2021 08:01
[2021-07-06 08:39] LABS: CALCIUM LEVEL 9.7 MG/DL (8.8-10.2); CREATININE FOR GFR 1.42 MG/DL (0.55-1.30); GLOMERULAR FILTRATION RATE 38.5 (>39); POTASSIUM SERUM 3.4 MEQ/L (3.5-5.1)
[2021-07-06] MEDS ORDERED: LevoFLOXacin 750 MG TABLET PO SCH (09:00)
[2021-07-06] MEDS: TAMSULOSIN 0.4 MG CAP PO SCH (09:10)
[2021-07-06] MEDS ORDERED: POTASSIUM CHLORIDE 10MEQ SR TABLET PO ONE (12:10)
--- NOTE | 2021-07-06 12:12 | DS.PDOC ---
Discharge Summary General Date of Admission Jul 03, 2021 at 19:54 Date of Discharge 07/06/21 Discharge Summary DISCHARGE DIAGNOSES: Obstructive uropathy Acute kidney injury Hydronephrosis 2 mm left UVJ stone KLEBSIELLA Urinary tract infection in the setting of obstructive uropathy with a left UVJ stone KLEBSIELLA Bacteremia most likely transient secondary to UTI URINE RETENTION BLADDER SPASMS Hypokalemia DISCHARGE MEDICATIONS: SEE BELOW DISCHARGE INSTRUCTIONS: PCP AND UROLOGY FU WITHIN 5 DAYS. KUB to be ordered by PCP prior to urology appt. [employer] LAW CONSULTANT: UROLOGY DR. CHOU [facility]: This is a 76-year-old elderly female who presents to [facility] ER with chief complaint of nausea and vomiting. Patient states that her nausea vomiting started on Friday but has not let up so she presented to the ER for further assessment. She states that she is also been experiencing some dysuria and left-sided flank pain that is sharp in nature and radiates to the front of her abdomen. She denies any pus or iban blood in urine. The flank pain has been constant she states that the hot pad to the flank region makes the pain a bit better but states that neither moving nor staying at rest alleviates the pain. 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 Her stent was recently removed by Dr. Chou she has not had any other issues on that side. In the ER patient was noted to have an JOHANNE and CT abdomen pelvis did find a left-sided hydronephrosis secondary to a small 2 mm stone at the UVJ. Pt was hydrated with improvement in creatinine from 2.02 to 1.42 on discharge w/o sob or fluid overload. Zambrano catheter was placed with strict i/o and adequate urine output. trial of voiding after zambrano discontinued . pt was given iv ceftriaxone, and changed to po levaquin renally dosed as 750mg po q48hrs, and kept on flomax. Pt was discharged in stable condition. DISCHARGE PHYSICAL EXAMINATION: VITAL SIGNS: Please see below. GENERAL: No distress HEENT: No JVD thyromegaly moist mucous membranes CARDIOVASCULAR: S1-S2 regular rate rhythm RESPIRATORY: Diminished breath sounds but clear to auscultation no wheezing or rales ABDOMINAL: Positive bowel sounds softnondistended positive CVA tenderness Zambrano has been discontinued EXTREMITIES: No cyanosis clubbing or pitting edema DISCHARGE LABORATORY DATA, IMAGING STUDIES, MICROBIOLOGY: Please see below. TIME SPENT ON DISCHARGE: 30 MINUTES Vital Signs/I&Os Vital Signs Date Time Temp Pulse Resp B/P (MAP) Pulse Ox O2 Delivery O2 Flow Rate FiO2 07/06/21 06:00 97.6 75 18 115/60 (78) 98 Room Air I&O- Last 24 Hours up to 6 AM 07/06/21 06:00 Intake Total 4000 ml Output Total 2200 ml Balance 1800 ml Laboratory Data Labs 24H Laboratory Tests 2 07/05/21 12:59: Erythrocyte Sedimentation Rate 62H, Anion Gap 7L, Glomerular Filtration Rate 38.5L, Calcium Level 9.1, C-Reactive Protein, Quantitative 17.60H, Procalcitonin 7.97 07/06/21 07:50: Anion Gap 6L, Glomerular Filtration Rate 38.5L, Calcium Level 9.7 CBC/BMP Laboratory Tests 07/05/21 12:59 07/06/21 07:50 Microbiology Microbiology 07/04/21 Blood Culture - Preliminary, Resulted No growth after 24 hours . All specim... 07/04/21 Blood Culture - Preliminary, Resulted No growth after 24 hours . All specim... 07/03/21 Respiratory Virus Panel (PCR) ([facility]) - Final, Complete 07/03/21 Blood Culture - Final, Complete Klebsiella Pneumoniae 07/03/21 Blood Culture - Preliminary, Resulted 07/03/21 Urine Culture - Final, Complete Klebsiella Pneumoniae Discharge Medications Scheduled Ascorbic Acid (Vitamin C) 500 Mg Tablet, 500 MG PO DAILY, (Reported) Bacillus Coagulans (Bacid with Lactospore) 1 Each Capsule, 1 CAP PO WMHS Calcium Carbonate/Vitamin D3 (Calcium 500-Vit D3 200 [place]) 1 Each Tablet, 1 TAB PO DAILY, (Reported) Cholecalciferol (Vitamin D3) (Vitamin D3) 1,000 Unit Tablet, 1,000 UNITS PO DAILY, (Reported) Conjugated Estrogens (Premarin) 0.625 Mg Tablet, 0.625 MG PO QHS, (Reported) Duloxetine Hcl (Duloxetine HCl) 30 Mg Capsule.dr, 30 MG PO DAILY, (Reported) L.acidoph/L.bulg/B.bif/S.therm (Bacid Caplet) 1 Each Tablet, 1 TAB PO DAILY, (Reported) Levofloxacin (Levofloxacin) 750 Mg Tablet, 750 MG PO Q48H Tamsulosin HCl (Flomax) 0.4 Mg Capsule, 0.4 MG PO DAILY Scheduled PRN Fluticasone Propionate (Flonase Allergy Relief) 9.9 Ml [place].susp, 2 SPRAYS NA DAILY PRN for NASAL CONGESTION, (Reported) Oxybutynin Chloride (Oxybutynin Chloride) 5 Mg Tablet, 5 MG PO TIDP PRN for BLADDER SPASM Oxycodone HCl (Oxycodone HCl) 5 Mg Tablet, 5 MG PO BID PRN for MODERATE/SEVERE PAIN (PS 5-10), (Reported) Allergies Coded Allergies: shellfish derived (Verified Allergy, Severe, anaphylaxis, 01/31/21) BELÉN MAYA MD Jul 06, 2021 12:08
== END 2021-07-06 13:01 | disposition home or self-care (01) | DRG 690 ==
LOC: M ED 19:53 → M ED INP 19:54 → ENRESERV 07-04 03:40 → M MSPAV 07-04 04:11
PROVIDERS: ADMIT Family Medicine; ATTEND General Practice
DX: N13.6 Pyonephrosis (principal); R78.81 Bacteremia; N17.9 Acute kidney failure, unspecified; N39.0 Urinary tract infection, site not specified; B96.1 Klebsiella pneumoniae [K. pneumoniae] as the cause of diseases classified elsewhere; E87.6 Hypokalemia; Z91.018 Allergy to other foods; Z79.899 Other long term (current) drug therapy

== ENCOUNTER → 2021-07-19 | Outpatient (CLI) | payer MEDICARE, OTHER ==
[~2021-07-19] MED LIST changes: +BACI1CAP PO; +BACITAB PO; +C 50TAB PO; +CALC1TAB30 PO; +DULO30CA9 PO; +ESTR625TA PO; +FLOM0.4C39 PO; +FLON1SPR; +LEVO750T13 PO; +OXYB5TAB10 PO; +OXYC-517 PO
--- NOTE | 2021-07-19 15:18 | REP ---
INDICATION: CALCULUS OF KIDNEY COMPARISON: None. TECHNIQUE: Two supine views of the abdomen and pelvis. FINDINGS: Bilateral intrarenal calculi measuring up to approximately 3-4 mm are suggested (left greater than right). Bowel gas pattern is nonspecific. Skeletal structures demonstrate age-related osteopenia and degenerative changes along with prior lumbosacral surgery and right hip replacement. IMPRESSION: Bilateral nephroliths. <Electronically signed by Keith Alva > 07/19/21 [id number]
[2021-07-19 17:32] LABS: APPEARANCE, URINE CLEAR (CLEAR); BACTERIA, URINE AUTO NEGATIVE (NEGATIVE); BILIRUBIN, URINE AUTO NEGATIVE (NEGATIVE); BLOOD, URINE BLOOD NEGATIVE (NEGATIVE); COLOR, URINE YELLOW (YELLOW); GLUCOSE, URINE (UA) AUTO NEGATIVE (NEGATIVE); KETONE, URINE AUTO NEGATIVE (NEGATIVE); LEUKOCYTE ESTERASE, URINE AUTO NEGATIVE (NEGATIVE); MUCUS, URINE SMALL (NEGATIVE); NITRITE, URINE AUTO NEGATIVE (NEGATIVE); PROTEIN, URINE AUTO NEGATIVE (NEGATIVE); RBC, URINE AUTO 2 /HPF (0-3); SPECIFIC GRAVITY URINE AUTO 1.013 (1.002-1.035); SQUAMOUS EPITHELIAL CELL UR AU 1 /HPF (0-6); UROBILINOGEN, URINE AUTO 0.2 mg/dL (0.0-2.0); WBC, URINE AUTO 3 /HPF (0-3)
== END ==
LOC: M PLAIMG 14:50
PROVIDERS: ATTEND Urology
DX: N20.0 Calculus of kidney (principal); N39.0 Urinary tract infection, site not specified
CPT/HCPCS: 74018; 81001; 87086; G0463

== ENCOUNTER → 2022-01-21 | Outpatient (CLI) | payer MEDICARE, OTHER ==
[~2022-01-21] MED LIST changes: -D31000TA2 PO; -PHEN15CA PO; +PHEN15CA6 PO; +VITA100093 PO
== END ==
LOC: M LAB 15:52 → M RAD 15:52
PROVIDERS: ATTEND Urology
DX: N20.0 Calculus of kidney (principal)

== ENCOUNTER → 2022-01-31 | Outpatient (CLI) | payer MEDICARE | LOC: M RAD 10:28 | PROVIDERS: ATTEND Urology | DX: N20.0 Calculus of kidney (principal) ==

== ENCOUNTER → 2022-02-01 | Outpatient (REF) | payer MEDICARE | LOC: M SMT 17:49 | PROVIDERS: ATTEND Urology | DX: N39.0 Urinary tract infection, site not specified (principal) ==

== ENCOUNTER → 2022-02-28 | Outpatient (CLI) | payer MEDICARE | LOC: M PLALAB 15:23 | PROVIDERS: ATTEND Urology | DX: Z01.818 Encounter for other preprocedural examination (principal); N20.1 Calculus of ureter ==

== ENCOUNTER → 2022-03-01 | Outpatient (CLI) | payer MEDICARE | LOC: M LABSMTC 10:13 | PROVIDERS: ATTEND Anesthesiology | DX: Z01.812 Encounter for preprocedural laboratory examination (principal); Z20.822 Contact with and (suspected) exposure to COVID-19 ==

== ENCOUNTER → 2022-03-05 | Outpatient (CLI) | payer MEDICARE ==
[~2022-03-05] MED LIST changes: +AMPI500C9 PO; +OXYB-54 PO
== END ==
LOC: M PLAIMG 15:59
PROVIDERS: ATTEND Urology
DX: Z01.818 Encounter for other preprocedural examination (principal); N20.1 Calculus of ureter

== ENCOUNTER 2022-03-06 06:18 | Day surgery (SDC) | payer MEDICARE ==
[~2022-03-06] VITALS: Ht 165.1 cm; Wt 73.2 kg
[~2022-03-06 06:18] MED LIST changes: -AMPI500C9 PO; +GENTAMICIN 80 MG in IV 1 EA IV ONE; -OXYB-54 PO; +VANCOMYCIN HCL 1,000 MG, VIAL MATE ADAPTER 1 EACH in NS 250 ML IV ONE
[2022-03-06] MEDS ORDERED: LR 1,000 ML IV SCH ×2 (06:35→08:40)
[2022-03-06] MEDS ORDERED: INSULIN LISPRO (NovoLOG) PER UNIT SC PRN (06:35)
[2022-03-06] MEDS ORDERED: AMPI500C9 PO (06:37)
[2022-03-06] MEDS ORDERED: ISOVUE-300 61% 50ML VIAL As Ordered ONE (07:13)
[2022-03-06] MEDS ORDERED: propofoL 200 MG/20 ML VIAL As Ordered ONE (07:18)
[2022-03-06] MEDS ORDERED: MIDAZOLAM INJ 2MG/2ML VIAL (J2250 PER 1MG) As Ordered ONE (07:18)
[2022-03-06] MEDS ORDERED: fentaNYL 100 MCG/2 ML INJECTION As Ordered ONE (07:18)
[2022-03-06] MEDS ORDERED: LIDOCAINE 2% 100MG/5ML SDV (FOR ANES.) As Ordered ONE (07:18)
[2022-03-06] MEDS ORDERED: dexameTHASONE 4 MG/ML 1ML VIAL (J1100 PER 1MG) As Ordered ONE (07:45)
[2022-03-06] MEDS ORDERED: ONDANSETRON 4MG/2ML VIAL As Ordered ONE (07:49)
[2022-03-06] MEDS ORDERED: METOCLOPRAMIDE INJ 10MG/2ML VIAL (J2765 PER 1) IV PRN (08:40)
[2022-03-06] MEDS ORDERED: oxyCODONE 5MG TAB PO PRN (08:40)
[2022-03-06] MEDS ORDERED: fentaNYL 100 MCG/2 ML INJECTION IV PRN (08:40)
[2022-03-06] MEDS ORDERED: ONDANSETRON 4MG/2ML VIAL IV PRN (08:40)
[2022-03-06] MEDS ORDERED: OXYB-54 PO (09:04)
[2022-03-06] MEDS ORDERED: OXYC1TAB23 PO (09:04)
[2022-03-06] MEDS ORDERED: oxyBUTYnin 5 MG TAB PO PRN (09:50)
[2022-03-06] MEDS ORDERED: PERCOCET 5MG/325MG TAB PO PRN (09:50)
[2022-03-06 10:35] VITALS: BP 142/63
[2022-03-11 19:06] LABS: CA Hydro Phos 50 % (.); CA Oxalate Dihy 40 % (.); Ca Ox Monohydrate 10 % (.); Size 5x3 mm (.)
== END 2022-03-06 10:42 | disposition home or self-care (01) ==
LOC: M SDC 06:18
PROVIDERS: ATTEND Urology
DX: N20.0 Calculus of kidney (principal); K57.92 Diverticulitis of intestine, part unspecified, without perforation or abscess without bleeding; Z88.0 Allergy status to penicillin; Z91.013 Allergy to seafood; Z79.899 Other long term (current) drug therapy; Z79.51 Long term (current) use of inhaled steroids
CPT/HCPCS: 52356; 74420; 82365; C1769; C1894; C2617; J1100; J1580; J2250; J2405; J3010; J3370; Q9967

== ENCOUNTER → 2022-03-21 | Outpatient (REF) | payer MEDICARE, OTHER ==
[~2022-03-21] MED LIST changes: +AMPI500C9 PO; -GENTAMICIN 80 MG in IV 1 EA IV ONE; +OXYB-54 PO; -VANCOMYCIN HCL 1,000 MG, VIAL MATE ADAPTER 1 EACH in NS 250 ML IV ONE
[2022-03-21 13:56] LABS: APPEARANCE, URINE HAZY (CLEAR); BACTERIA, URINE AUTO 1+ (NEGATIVE); BILIRUBIN, URINE AUTO NEGATIVE (NEGATIVE); BLOOD, URINE BLOOD 2+ (NEGATIVE); COLOR, URINE YELLOW (YELLOW); GLUCOSE, URINE (UA) AUTO NEGATIVE (NEGATIVE); KETONE, URINE AUTO NEGATIVE (NEGATIVE); LEUKOCYTE ESTERASE, URINE AUTO 2+ (NEGATIVE); MUCUS, URINE SMALL (NEGATIVE); NITRITE, URINE AUTO NEGATIVE (NEGATIVE); PROTEIN, URINE AUTO 1+ mg/dL (NEGATIVE); RBC, URINE AUTO 22 /HPF (0-3); SPECIFIC GRAVITY URINE AUTO 1.012 (1.002-1.035); SQUAMOUS EPITHELIAL CELL UR AU 9 /HPF (0-6); UROBILINOGEN, URINE AUTO 0.2 mg/dL (0.0-2.0); WBC, URINE AUTO 5 /HPF (0-3)
== END ==
LOC: M SFHCADAM 10:43
PROVIDERS: ATTEND Urology
DX: R30.0 Dysuria (principal)

== ENCOUNTER → 2022-10-24 | Outpatient (CLI) | payer MEDICARE, OTHER ==
[~2022-10-24] MED LIST changes: +LEVO1TAB40 PO; -LEVO750T13 PO
== END ==
LOC: M PLAIMG 11:31
PROVIDERS: ATTEND Urology
DX: N20.0 Calculus of kidney (principal)

== ENCOUNTER → 2022-11-05 | Outpatient (CLI) | payer MEDICARE, OTHER | LOC: M RAD 12:51 | PROVIDERS: ATTEND Urology | DX: N20.0 Calculus of kidney (principal) ==

== ENCOUNTER → 2022-11-27 | Outpatient (REF) | payer MEDICARE, OTHER ==
[2022-11-27 16:57] LABS: APPEARANCE, URINE CLOUDY (CLEAR); BACTERIA, URINE AUTO 1+ (NEGATIVE); BILIRUBIN, URINE AUTO NEGATIVE (NEGATIVE); BLOOD, URINE BLOOD 2+ (NEGATIVE); CALCIUM OXALATE CRYSTALS LARGE; COLOR, URINE YELLOW (YELLOW); GLUCOSE, URINE (UA) AUTO NEGATIVE (NEGATIVE); KETONE, URINE AUTO NEGATIVE (NEGATIVE); LEUKOCYTE ESTERASE, URINE AUTO 2+ (NEGATIVE); MUCUS, URINE SMALL (NEGATIVE); NITRITE, URINE AUTO NEGATIVE (NEGATIVE); PROTEIN, URINE AUTO NEGATIVE (NEGATIVE); RBC, URINE AUTO 63 /HPF (0-3); SPECIFIC GRAVITY URINE AUTO 1.019 (1.002-1.035); SQUAMOUS EPITHELIAL CELL UR AU 14 /HPF (0-6); UROBILINOGEN, URINE AUTO 0.2 mg/dL (0.0-2.0); WBC, URINE AUTO 8 /HPF (0-3)
== END ==
LOC: M LAB REF 16:21
PROVIDERS: ATTEND Internal Medicine
DX: Z01.810 Encounter for preprocedural cardiovascular examination (principal)

== ENCOUNTER → 2022-11-27 | Outpatient (CLI) | payer MEDICARE, OTHER | LOC: M LABSMTC 09:13 | PROVIDERS: ATTEND Anesthesiology | DX: Z01.812 Encounter for preprocedural laboratory examination (principal); Z20.822 Contact with and (suspected) exposure to COVID-19 ==

== ENCOUNTER → 2022-11-29 | Outpatient (CLI) | payer MEDICARE, OTHER ==
[~2022-11-29] MED LIST changes: +ALIG10.5 PO; +OXYB10TA23 PO
== END ==
LOC: M PLAIMG 14:40
PROVIDERS: ATTEND Urology
DX: Z01.818 Encounter for other preprocedural examination (principal); N20.1 Calculus of ureter

== ENCOUNTER 2022-12-02 07:50 | Day surgery (SDC) | payer MEDICARE, OTHER ==
[~2022-12-02] VITALS: Ht 165.1 cm; Wt 75.3 kg
[~2022-12-02 07:50] MED LIST changes: -OXYB10TA23 PO; +ceFAZolin SOD 2 GM in IV 1 EA IV ONE
[2022-12-02] MEDS ORDERED: LIDOCAINE 2% 100MG/5ML SDV (FOR ANES.) As Ordered ONE (08:04)
[2022-12-02] MEDS ORDERED: fentaNYL 100 MCG/2 ML INJECTION As Ordered ONE (08:04)
[2022-12-02] MEDS ORDERED: ONDANSETRON 4MG 2ML VIAL As Ordered ONE (08:04)
[2022-12-02] MEDS ORDERED: propofoL 200 MG/20 ML VIAL As Ordered ONE (08:04)
[2022-12-02] MEDS ORDERED: ACETAMINOPHEN 1000MG 100ML IV BAG As Ordered ONE (08:05)
[2022-12-02] MEDS ORDERED: LR 1,000 ML IV SCH ×2 (08:15→10:40)
[2022-12-02] MEDS ORDERED: ISOVUE-300 61% 100ML VIAL As Ordered ONE (09:03)
[2022-12-02] MEDS ORDERED: MIDAZOLAM INJ 2MG/2ML VIAL As Ordered ONE (09:05)
[2022-12-02] MEDS ORDERED: VASOPRESSIN INJ 20UNITS/ML 1ML VIAL As Ordered ONE (09:36)
[2022-12-02] MEDS ORDERED: fentaNYL 100 MCG/2 ML INJECTION IV PRN (10:40)
[2022-12-02] MEDS ORDERED: ONDANSETRON 4MG 2ML VIAL IV PRN (10:40)
[2022-12-02] MEDS ORDERED: OXYC1TAB23 PO (10:44)
[2022-12-02] MEDS ORDERED: OXYB10TA23 PO (10:44)
[2022-12-02] MEDS: oxyCODONE 5MG TAB PO PRN ×2 (10:49→11:09)
[2022-12-02 12:30] VITALS: BP 154/76
== END 2022-12-02 12:54 | disposition home or self-care (01) ==
LOC: M SDC 07:50
PROVIDERS: ATTEND Urology
DX: N20.0 Calculus of kidney (principal); K57.92 Diverticulitis of intestine, part unspecified, without perforation or abscess without bleeding; Z79.899 Other long term (current) drug therapy; Z88.0 Allergy status to penicillin; Z91.013 Allergy to seafood
CPT/HCPCS: 52356; 74420; 82365; C1769; C1894; C2617; J0131; J0690; J1100; J2250; J2405; J3010; Q9967

== ENCOUNTER → 2022-12-16 | Outpatient (REF) | payer MEDICARE, OTHER ==
[~2022-12-16] MED LIST changes: +OXYB10TA23 PO; -ceFAZolin SOD 2 GM in IV 1 EA IV ONE
[2022-12-16 14:55] LABS: APPEARANCE, URINE HAZY (CLEAR); BACTERIA, URINE AUTO 1+ (NEGATIVE); BILIRUBIN, URINE AUTO NEGATIVE (NEGATIVE); BLOOD, URINE BLOOD 3+ (NEGATIVE); COLOR, URINE YELLOW (YELLOW); GLUCOSE, URINE (UA) AUTO NEGATIVE (NEGATIVE); KETONE, URINE AUTO NEGATIVE (NEGATIVE); LEUKOCYTE ESTERASE, URINE AUTO 1+ (NEGATIVE); NITRITE, URINE AUTO NEGATIVE (NEGATIVE); PROTEIN, URINE AUTO 2+ mg/dL (NEGATIVE); RBC, URINE AUTO TNTC /HPF (0-3); SPECIFIC GRAVITY URINE AUTO 1.014 (1.002-1.035); SQUAMOUS EPITHELIAL CELL UR AU 2 /HPF (0-6); UROBILINOGEN, URINE AUTO 0.2 mg/dL (0.0-2.0); WBC, URINE AUTO 15 /HPF (0-3)
== END ==
LOC: M LABSMT 10:26
PROVIDERS: ATTEND Urology
DX: N39.0 Urinary tract infection, site not specified (principal)

== ENCOUNTER → 2024-05-24 | Outpatient (REF) | payer MEDICARE, OTHER ==
[~2024-05-24] MED LIST changes: -OXYB5TAB10 PO; +OXYB5TAB14 PO
[2024-05-24 12:38] LABS: APPEARANCE, URINE CLOUDY (CLEAR); BACTERIA, URINE AUTO 1+ (NEGATIVE); BILIRUBIN, URINE AUTO NEGATIVE (NEGATIVE); BLOOD, URINE BLOOD 2+ (NEGATIVE); COLOR, URINE AMBER (YELLOW); GLUCOSE, URINE (UA) AUTO NEGATIVE (NEGATIVE); KETONE, URINE AUTO NEGATIVE (NEGATIVE); LEUKOCYTE ESTERASE, URINE AUTO 1+ (NEGATIVE); MUCUS, URINE SMALL (NEGATIVE); NITRITE, URINE AUTO POSITIVE (NEGATIVE); PROTEIN, URINE AUTO 2+ mg/dL (NEGATIVE); RBC, URINE AUTO 40 /HPF (0-3); SPECIFIC GRAVITY URINE AUTO 1.017 (1.002-1.035); SQUAMOUS EPITHELIAL CELL UR AU 5 /HPF (0-6); WBC, URINE AUTO TNTC /HPF (0-3)
== END ==
LOC: M LAB REF 12:11
PROVIDERS: ATTEND Physician Assistant Medical
DX: N39.0 Urinary tract infection, site not specified (principal)

== ENCOUNTER → 2024-09-13 | Outpatient (REF) | payer MEDICARE, OTHER ==
[~2024-09-13] MED LIST changes: +GABA-1172; -GABA-282
== END ==
LOC: M LAB REF 17:50
PROVIDERS: ATTEND Internal Medicine
DX: N15.9 Renal tubulo-interstitial disease, unspecified (principal)

== ENCOUNTER → 2024-10-12 | Outpatient (REF) | payer MEDICARE, OTHER ==
[2024-10-12 17:07] LABS: AMORPHOUS SEDIMENT SMALL (NEGATIVE); APPEARANCE, URINE HAZY (CLEAR); BACTERIA, URINE AUTO 1+ (NEGATIVE); BILIRUBIN, URINE AUTO NEGATIVE (NEGATIVE); BLOOD, URINE BLOOD 1+ (NEGATIVE); COLOR, URINE YELLOW (YELLOW); GLUCOSE, URINE (UA) AUTO NEGATIVE (NEGATIVE); KETONE, URINE AUTO NEGATIVE (NEGATIVE); LEUKOCYTE ESTERASE, URINE AUTO TRACE (NEGATIVE); MUCUS, URINE SMALL (NEGATIVE); NITRITE, URINE AUTO NEGATIVE (NEGATIVE); PROTEIN, URINE AUTO NEGATIVE (NEGATIVE); RBC, URINE AUTO 6 /HPF (0-3); SPECIFIC GRAVITY URINE AUTO 1.014 (1.002-1.035); SQUAMOUS EPITHELIAL CELL UR AU 1 /HPF (0-6); UROBILINOGEN, URINE AUTO 0.2 mg/dL (0.0-2.0); WBC, URINE AUTO 42 /HPF (0-3)
== END ==
LOC: M LAB REF 16:05
PROVIDERS: ATTEND Physician Assistant Medical
DX: N39.0 Urinary tract infection, site not specified (principal)

== ENCOUNTER → 2024-10-25 | Outpatient (REF) | payer MEDICARE, OTHER ==
[2024-10-25 18:23] LABS: CREATININE FOR GFR 1.14 MG/DL (0.55-1.30); GLOMERULAR FILTRATION RATE 49.2 (>39)
== END ==
LOC: M LABDRAWP 17:19
PROVIDERS: ATTEND Physician Assistant Surgical
DX: M54.50 Low back pain, unspecified (principal)

== ENCOUNTER → 2024-11-22 | Outpatient (CLI) | payer MEDICARE, OTHER | LOC: M PLAIMG 13:54 | PROVIDERS: ATTEND Urology | DX: N20.0 Calculus of kidney (principal) ==

== ENCOUNTER → 2024-11-26 | Outpatient (REF) | payer MEDICARE, OTHER ==
[2024-11-26 16:47] LABS: URIC ACID 6.9 MG/DL (3.1-7.8)
[2024-11-26 16:48] LABS: C REACTIVE PROTEIN QUANTITATIV < 0.50 MG/DL (<1.0)
[2024-11-26 16:50] LABS: PHOSPHORUS LEVEL 3.4 MG/DL (2.4-5.1)
[2024-11-26 17:29] LABS: PTH INTACT 95.7 PG/ML (18.5-88.0)
== END ==
LOC: M LAB REF 16:09
PROVIDERS: ATTEND Internal Medicine
DX: M15.9 Polyosteoarthritis, unspecified (principal); N18.30 Chronic kidney disease, stage 3 unspecified

== ENCOUNTER → 2024-12-23 | Outpatient (CLI) | payer MEDICARE, OTHER | LOC: M RAD 16:49 | PROVIDERS: ATTEND Urology | DX: N20.0 Calculus of kidney (principal) ==

== ENCOUNTER → 2025-02-15 | Outpatient (CLI) | payer MEDICARE, OTHER ==
[~2025-02-15] MED LIST changes: -FLOM0.4C39 PO; +TAMS-18 PO
[2025-02-15 17:41] LABS: APPEARANCE, URINE CLEAR (CLEAR); BACTERIA, URINE AUTO NEGATIVE (NEGATIVE); BILIRUBIN, URINE AUTO NEGATIVE (NEGATIVE); BLOOD, URINE BLOOD NEGATIVE (NEGATIVE); COLOR, URINE YELLOW (YELLOW); GLUCOSE, URINE (UA) AUTO NEGATIVE (NEGATIVE); KETONE, URINE AUTO NEGATIVE (NEGATIVE); LEUKOCYTE ESTERASE, URINE AUTO NEGATIVE (NEGATIVE); NITRITE, URINE AUTO NEGATIVE (NEGATIVE); PROTEIN, URINE AUTO NEGATIVE (NEGATIVE); RBC, URINE AUTO 0 /HPF (0-3); SPECIFIC GRAVITY URINE AUTO 1.018 (1.002-1.035); SQUAMOUS EPITHELIAL CELL UR AU 2 /HPF (0-6); UROBILINOGEN, URINE AUTO 0.2 mg/dL (0.0-2.0); WBC, URINE AUTO 5 /HPF (0-3)
== END ==
LOC: M RAD 16:37
PROVIDERS: ATTEND Urology
DX: Z01.818 Encounter for other preprocedural examination (principal); N39.3 Stress incontinence (female) (male); N36.42 Intrinsic sphincter deficiency (ISD); N39.0 Urinary tract infection, site not specified

== ENCOUNTER 2025-02-17 06:16 | Day surgery (SDC) | payer MEDICARE, OTHER ==
[~2025-02-17] VITALS: Ht 165.1 cm; Wt 79.4 kg
[2025-02-17] MEDS ORDERED: ONDANSETRON 4MG 2ML VIAL As Ordered ONE (06:52)
[2025-02-17] MEDS ORDERED: propofoL 200 MG/20 ML VIAL As Ordered ONE (06:52)
[2025-02-17] MEDS ORDERED: LIDOCAINE 2% 100MG/5ML SDV (FOR ANES.) As Ordered ONE (06:52)
[2025-02-17] MEDS ORDERED: fentaNYL 100 MCG/2 ML INJECTION As Ordered ONE (06:55)
[2025-02-17] MEDS ORDERED: LR 1,000 ML IV SCH (07:00)
[2025-02-17] MEDS ORDERED: BACITRACIN OINTMENT 30GM TUBE As Ordered ONE (07:08)
[2025-02-17] MEDS ORDERED: MIDAZOLAM INJ 2MG/2ML VIAL As Ordered ONE (07:09)
[2025-02-17] MEDS: ceFAZolin SOD 2 GM IV ONCE IV ONE (07:30)
[2025-02-17] MEDS ORDERED: ACETAMINOPHEN 1000MG/100ML IV BAG As Ordered ONE (07:42)
[2025-02-17] MEDS: POVIDONE-IODINE 5% OPHTH PREP SOL 30ML As Ordered ONE (07:45)
[2025-02-17] MEDS: LIDOCAINE W/EPINEPHRINE 1% 20ML VIAL As Ordered ONE (07:51)
[2025-02-17 08:37] VITALS: BP 154/70; TEMP 97.8; O2SAT 97
== END 2025-02-17 09:05 | disposition home or self-care (01) ==
LOC: M SDC 06:16
PROVIDERS: ATTEND Plastic Surgery Surgery of the Hand
DX: S01.312A Laceration without foreign body of left ear, initial encounter (principal); X58.XXXA Exposure to other specified factors, initial encounter; Y93.9 Activity, unspecified; Y92.9 Unspecified place or not applicable; Z79.890 Hormone replacement therapy; N18.32 Chronic kidney disease, stage 3b; N26.1 Atrophy of kidney (terminal); M48.07 Spinal stenosis, lumbosacral region; Z88.0 Allergy status to penicillin; Z91.013 Allergy to seafood; Z90.49 Acquired absence of other specified parts of digestive tract; Z90.710 Acquired absence of both cervix and uterus; M15.9 Polyosteoarthritis, unspecified
CPT/HCPCS: 14060; 88302; J0131; J0690; J1100; J2250; J2405

== ENCOUNTER 2025-02-23 08:05 | Day surgery (SDC) | payer MEDICARE, OTHER ==
[~2025-02-23] VITALS: Ht 165.1 cm; Wt 81.3 kg
[2025-02-23] MEDS ORDERED: LIDOCAINE 2% 100MG/5ML SDV (FOR ANES.) As Ordered ONE (08:45)
[2025-02-23] MEDS ORDERED: propofoL 200 MG/20 ML VIAL As Ordered ONE (08:45)
[2025-02-23] MEDS ORDERED: ACETAMINOPHEN 1000MG/100ML IV BAG As Ordered ONE (08:47)
[2025-02-23] MEDS ORDERED: ONDANSETRON 4MG 2ML VIAL As Ordered ONE (08:47)
[2025-02-23] MEDS ORDERED: fentaNYL 100 MCG/2 ML INJECTION As Ordered ONE (08:48)
[2025-02-23] MEDS: ceFAZolin SOD 2 GM IV ONCE IV ONE (09:27)
[2025-02-23] MEDS: LIDOCAINE 2% 5ML JELLY UROJET As Ordered ONE (09:36)
[2025-02-23 11:20] VITALS: BP 157/91; TEMP 97.6; O2SAT 99
== END 2025-02-23 11:45 | disposition home or self-care (01) ==
LOC: M SDC 08:05
PROVIDERS: ATTEND Urology
DX: N36.42 Intrinsic sphincter deficiency (ISD) (principal); N39.3 Stress incontinence (female) (male); Z87.442 Personal history of urinary calculi; Z90.710 Acquired absence of both cervix and uterus; Z87.19 Personal history of other diseases of the digestive system; Z79.899 Other long term (current) drug therapy; Z88.0 Allergy status to penicillin; Z91.013 Allergy to seafood
CPT/HCPCS: 51715; A4215; J0131; J0690; J1100; J2405; J3010; L8606

== ENCOUNTER → 2025-05-02 | Outpatient (REF) | payer MEDICARE, OTHER | LOC: M LAB REF 17:11 | PROVIDERS: ATTEND Nurse Practitioner Family | DX: R30.0 Dysuria (principal) ==

== ENCOUNTER → 2025-08-01 | Outpatient (REF) | payer MEDICARE, OTHER ==
[2025-08-01 17:46] LABS: APPEARANCE, URINE CLOUDY (CLEAR); BACTERIA, URINE AUTO 1+ (NEGATIVE); BILIRUBIN, URINE AUTO NEGATIVE (NEGATIVE); BLOOD, URINE BLOOD 2+ (NEGATIVE); GLUCOSE, URINE (UA) AUTO NEGATIVE (NEGATIVE); KETONE, URINE AUTO NEGATIVE (NEGATIVE); LEUKOCYTE ESTERASE, URINE AUTO 2+ (NEGATIVE); MUCUS, URINE SMALL (NEGATIVE); NITRITE, URINE AUTO NEGATIVE (NEGATIVE); PROTEIN, URINE AUTO 2+ mg/dL (NEGATIVE); RBC, URINE AUTO 46 /HPF (0-3); SPECIFIC GRAVITY URINE AUTO 1.014 (1.002-1.035); SQUAMOUS EPITHELIAL CELL UR AU 7 /HPF (0-6); UROBILINOGEN, URINE AUTO 4.0 mg/dL (0.0-2.0); WBC, URINE AUTO TNTC /HPF (0-3)
== END ==
LOC: M LABSMT 13:49
PROVIDERS: ATTEND Urology
DX: N20.0 Calculus of kidney (principal); N39.0 Urinary tract infection, site not specified

== ENCOUNTER → 2025-08-03 | Outpatient (REF) | payer MEDICARE, OTHER | LOC: M LAB REF 17:55 | DX: N39.0 Urinary tract infection, site not specified (principal); N18.32 Chronic kidney disease, stage 3b ==

== ENCOUNTER → 2025-08-19 | Outpatient (REF) | payer MEDICARE, OTHER | LOC: M LAB REF 14:19 | DX: R31.9 Hematuria, unspecified (principal); R82.998 Other abnormal findings in urine ==

== ENCOUNTER → 2025-08-25 | Outpatient (REF) | payer MEDICARE, OTHER | LOC: M SMT 17:32 | PROVIDERS: ATTEND Urology | DX: N39.0 Urinary tract infection, site not specified (principal) ==

== ENCOUNTER → 2025-09-06 | Outpatient (CLI) | payer MEDICARE, OTHER | LOC: M PLAIMG 10:49 | PROVIDERS: ATTEND Urology | DX: N20.0 Calculus of kidney (principal) ==